=== PATIENT | female | born 1960 | race Caucasian/White ===

== ENCOUNTER 2016-09-02 11:47 | Inpatient (IN) | payer BC ==
[~2016-09-02] VITALS: Ht 165.1 cm; Wt 111.6 kg
--- NOTE | ~2016-09-02 | S ---
[facility] [place] [address] SURGICAL PATH RPT PROCEDURE Name: MATT SCHULTZ Room #: 408-P [facility] IN M.R.#: [id number] Admission: 09/02/16 Date of : 64 Discharge: 09/06/16 Report #: [id number] Path Case #: [id number] PATHOLOGY REPORT COLLECTION DATE: 09/03/2016 RECEIVED DATE: 09/05/2016 SUBMITTING PHYS: Dr. Bob José OTHER PHYS: Dr. Aubree Vitale * AMENDED (CORRECTED) REPORT * SPECIMEN(S) RECEIVED: A.Bx sacrum splenic flexure to descending B.Bx descending colon polyp C.Bx rectal sigmoid D.Bx sigmoid inflammation E.Bx rectal polyp * * * * * * * * * * * * FINAL DIAGNOSIS: Amended Report 09/07/2016. This report is being amended due to incorrect client input by the legal intern. The final diagnosis remains unchanged. A. Large intestine, splenic flexure to descending, endoscopic biopsy: - Few fragments compatible with hyperplastic polyps; negative for dysplasia. - Remainder fragments showing no significant diagnostic abnormalities. B Polyp, descending colon polyp, endoscopic biopsy: - Tubular adenoma. - Negative for high grade dysplasia. C. Large intestine, rectal sigmoid, endoscopic biopsy: - Two fragments compatible with ischemic colitis. - Negative for dysplasia or malignancy. D. Large intestine, sigmoid inflammation, rule out malignancy, endoscopic biopsy: - Changes compatible with ischemic colitis. E. Polyp, rectal polyp, endoscopic biopsy: - Hyperplastic polyp. - Negative for dysplasia. COMMENT: Examination of the "sigmoid colon inflammation" and a few fragments in "rectosigmoid sigmoid" show lamina propria fibrosis, attenuated regenerative surface epithelium with atypia as well as loss of crypts. The changes are compatible with ischemic colitis. Findings [address] [address] SURGICAL PATH RPT PROCEDURE Name: SCHULTZMATT Gomez Room #: 408-P [facility] IN ..#: [id number] Admission: 09/02/16 Date of : 64 Discharge: 09/06/16 Report #: [id number] Path Case #: [id number] to suggest pseudomembranous colitis are not identified. There is no dysplasia or malignancy present. Clinical correlation is suggested. (IUV:csd; d/t: 09/06/2016) PATHOLOGIST: Naheed Lowe M.D. REPORT ELECTRONICALLY SIGNED BY: Naheed Lowe M.D. DATE/TIME: 09/07/2016 10:32 * * * * * * * * * * * * GROSS PATHOLOGY: A. Received in formalin labeled "Matt Schultz, splenic flexure to descending," are 5 segments of escobar soft tissue measuring 0.8 x 0.6 x 0.3 cm in aggregate dimensions and ranging from 0.2 to 0.4 cm in maximum dimension. The specimen is submitted entirely in cassette A1. B. Received in formalin labeled "Matt Schultz, biopsy descending colon polyp," is a segment of escobar soft tissue measuring 0.4 cm in maximum dimension. The specimen is submitted entirely in cassette B1. C. Received in formalin labeled "Matt Schultz, rectal sigmoid biopsy," are 3 segments of escobar soft tissue measuring 0.6 x 0.5 x 0.2 cm in aggregate dimensions and ranging from 0.3 to 0.4 cm in maximum dimension. The specimen is submitted entirely in cassette C1. D. Received in formalin labeled "Matt Schultz, biopsy sigmoid inflammation, rule out malignancy," are 4 segments of escobar soft tissue measuring 0.5 x 0.3 x 0.2 cm in aggregate dimensions and ranging from 0.2 to 0.3 cm in maximum dimension. The specimen is submitted entirely in cassette D1. E. Received in formalin labeled "Matt Schultz, biopsy rectal polyp," are 2 segments of escobar soft tissue measuring 0.6 x 0.3 x 0.2 cm in aggregate dimensions and ranging from 0.2 to 0.6 cm in maximum dimension. The specimen is submitted entirely in cassette E1. (KAH; 09/05/2016) CLINICAL HISTORY: Abdominal pain, GIB INITIAL CPT CODE(S): A; 70821 B; 65415 C; 41994 D; 11118 E; 86944 Professional services performed by [facility] at [address] [address] Technical services performed by [facility] at [address] [place] [id number] SURGICAL PATH RPT PROCEDURE Name: MATT SCHULTZ Room #: 408-P DIS IN M.R.#: [id number] Admission: 09/02/16 Date of : 64 Discharge: 09/06/16 Report #: [id number] Path Case #: [id number] [place] [address]. [facility] [address] [place] [address] PHONE: [phone] DIRECTOR: Keith Rizvi M.D. * * * END OF REPORT * * *
--- NOTE | ~2016-09-02 | H ---
[facility] [place] [address] HISTORY AND PHYSICAL Name: RAHEEM SCHULTZ Room #: 307-P [facility] IN ..#: [id number] Admission: 09/02/16 Attend Phys: Aubree France MD Discharge: Date of : 64 Report #: [id number] THIS REPORT FOR: //name// CC: Yanick Vitale DO Aubree France DATE OF SERVICE: 09/02/2016 CHIEF COMPLAINT: Abdominal pain and rectal bleeding. HISTORY OF PRESENT ILLNESS: The patient is a 56-year-old female with a history of hypertension and heavy tobacco abuse, presented to the ER secondary to abdominal pain and rectal bleeding. She indicates that symptoms started early in the morning as she was going to the bathroom. She had some nausea and vomiting and then significant amount of bright bloody stools. She has had multiple episodes. This was accompanied by severe burning in lower abdominal pain. She denies any prior history of this. She denies any recent travel, bad food, or sick contacts. She did have antibiotics a couple of weeks ago for an eye infection, but never completed her antibiotics. She denies any large amounts of diarrhea or bad odor. She last ate pizza yesterday evening with her family, but no one else is sick. She denies any prior history of this. She is not on any aspirin therapy. She continues to smoke heavily. She has not had a colonoscopy, and denies any family history of cancer. PAST MEDICAL HISTORY: Hypertension and GERD. CURRENT MEDICATIONS: Lisinopril/hydrochlorothiazide 20/25 one daily. ALLERGIES: None. SOCIAL HISTORY: She smokes little less than a pack a day, drinks occasionally. PAST SURGICAL HISTORY: None. REVIEW OF SYSTEMS: A 14-point review of systems was conducted. All negative except for above. PHYSICAL EXAMINATION: VITAL SIGNS: Temperature of 97, pulse of 73, blood pressure of 168/60, O2 sat is 97% on room air. GENERAL: She is awake, alert, and answering questions appropriately, in no acute respiratory distress, although she appears to be in pain. HEENT: Normocephalic and atraumatic. Pupils are equal. Mucous membranes are dry. NECK: Supple. [facility] [address] [place] [address] HISTORY AND PHYSICAL Name: RAHEEM SCHULTZ Room #: 307-P [facility] IN [facility]#: [id number] Admission: 09/02/16 Attend Phys: Aubree France MD Discharge: Date of : 64 Report #: [id number] CARDIOVASCULAR: Regular rate and rhythm. No murmurs. LUNGS: Clear to auscultation bilaterally. No crackles or wheeze. ABDOMEN: Soft. No distention. She had low abdominal tenderness. Normoactive bowel sounds. EXTREMITIES: No edema. LABS AND TESTING: White count of 11, H and H of 14 and 43, platelets 207. Occult blood was positive. Sodium 139, potassium 3.5, BUN and creatinine 12 and 0.9. LFTs are negative. Glucose 224. INR was 1.02. CT of the abdomen and pelvis demonstrated diffuse colitis involving the splenic flexure, descending colon, and proximal sigmoid colon. ASSESSMENT AND PLAN: 1. Colitis, suspected ischemic. Completely ruled out an infectious etiology. We will admit. Keep her n.p.o. Consult GI, consider CT angiogram on her mesenteric artery. I discussed smoking cessation as well with the patient. We will also order an infectious panel as well. 2. Hypertension. Continue home meds. 3. Hyperglycemia. It is suspected newly diagnosed diabetes. We will check an A1c and do Accu-Cheks here and treat appropriately based on A1c. 4. Tobacco abuse. I advised cessation. We will provide her with NicoDerm patch. 5. Morbid obesity. The patient would benefit with outpatient weight loss. 6. Deep venous thrombosis prophylaxis with SCDs. By: 1536 1714 My Grace France MD /nt
[~2016-09-02 11:47] MED LIST: ANTIVERT25 MG PO; LISINOPRIL-HCT1 EAC2 PO
[2016-09-02 11:49] VITALS: BP 184/74
[2016-09-02 12:37] LABS: ABSOLUTE NEUTROPHILS 9.5 thou/uL (1.4-8.2); BASOPHILS 0.2 % (0.0-2.0); EOSINOPHILS 0.2 % (0.0-3.0); HEMATOCRIT 43.1 % (37.0-47.0); HEMOGLOBIN 14.4 gm/dL (12.0-15.0); MCH 29.3 pg (26.0-34.0); MCHC 33.5 g/dL (28.0-37.0); MCV 87.4 fL (80.0-100.0); MONOCYTES 5.7 % (1.0-8.0); PLATELET COUNT 207 thou/uL (150-400); POLYS 83.9 % (36.0-66.0); RBC 4.94 mil/uL (4.20-5.00); RDW 14.4 % (10.5-14.5); WBC 11.4 thou/uL (4.0-11.0)
[2016-09-02 12:39] LABS: MANUAL DIFF NO
[2016-09-02 12:45] LABS: CALCIUM 8.4 mg/dL (8.5-10.1); CREATININE 0.9 mg/dL (0.6-1.0); POTASSIUM 3.5 mmol/L (3.5-5.1)
[2016-09-02 12:48] LABS: PROTIME 10.7 Seconds (9.3-11.4)
[2016-09-02 12:49] LABS: ALBUMIN 3.1 g/dL (3.4-5.0); TOTAL BILIRUBIN 0.3 mg/dL (<0.1-1.0); TOTAL PROTEIN 6.8 g/dL (6.4-8.2)
[2016-09-02 15:33] LABS: TROPONIN-I < 0.04 ng/mL (<0.04-0.07)
[2016-09-02 15:55] VITALS: BP 153/89
[2016-09-02 15:59] VITALS: BP 154/80
[2016-09-02 18:31] LABS: HEMATOCRIT 43.5 % (37.0-47.0); HEMOGLOBIN 14.5 gm/dL (12.0-15.0)
[2016-09-02 19:55] VITALS: BP 178/80
[2016-09-02 23:50] VITALS: BP 152/80
[2016-09-03 00:35] LABS: BASOPHILS 0.4 % (0.0-2.0); EOSINOPHILS 0.5 % (0.0-3.0); HEMATOCRIT 40.8 % (37.0-47.0); HEMOGLOBIN 13.6 gm/dL (12.0-15.0); LYMPHOCYTES 14.7 % (24.0-44.0); MCHC 33.5 g/dL (28.0-37.0); MCV 86.6 fL (80.0-100.0); MONOCYTES 6.7 % (1.0-8.0); PLATELET COUNT 196 thou/uL (150-400); POLYS 77.7 % (36.0-66.0); RBC 4.71 mil/uL (4.20-5.00); RDW 14.5 % (10.5-14.5); WBC 11.6 thou/uL (4.0-11.0)
[2016-09-03 00:40] LABS: MANUAL DIFF NO
[2016-09-03 04:06] LABS: GLYCOHEMOGLOBIN (HGB A1C) 6.4 % (4.8-5.6)
[2016-09-03 04:15] VITALS: BP 149/77
[2016-09-03 06:27] LABS: HEMOGLOBIN 13.5 gm/dL (12.0-15.0)
[2016-09-03 08:00] VITALS: BP 154/94
[2016-09-03 12:07] LABS: HEMATOCRIT 39.8 % (37.0-47.0); HEMOGLOBIN 13.3 gm/dL (12.0-15.0)
[2016-09-03 16:00] VITALS: BP 138/84
[2016-09-03 20:00] VITALS: BP 117/64
[2016-09-04 04:00] VITALS: BP 125/59
[2016-09-04 04:22] LABS: ABSOLUTE NEUTROPHILS 8.3 thou/uL (1.4-8.2); BASOPHILS 0.4 % (0.0-2.0); EOSINOPHILS 1.1 % (0.0-3.0); HEMATOCRIT 35.8 % (37.0-47.0); HEMOGLOBIN 12.1 gm/dL (12.0-15.0); LYMPHOCYTES 17.2 % (24.0-44.0); MCH 29.4 pg (26.0-34.0); MCHC 33.8 g/dL (28.0-37.0); MCV 86.9 fL (80.0-100.0); MONOCYTES 5.7 % (1.0-8.0); PLATELET COUNT 180 thou/uL (150-400); POLYS 75.6 % (36.0-66.0); RBC 4.13 mil/uL (4.20-5.00)
[2016-09-04 04:24] LABS: MANUAL DIFF NO
[2016-09-04 04:26] LABS: CALCIUM 7.7 mg/dL (8.5-10.1); CREATININE 0.7 mg/dL (0.6-1.0); POTASSIUM 3.5 mmol/L (3.5-5.1)
[2016-09-04 08:00] VITALS: BP 112/71
[2016-09-04 16:00] VITALS: BP 122/75
[2016-09-04 19:20] VITALS: BP 121/75
[2016-09-05 04:24] VITALS: BP 113/59
[2016-09-05 06:06] LABS: ABSOLUTE NEUTROPHILS 6.5 thou/uL (1.4-8.2); BASOPHILS 0.4 % (0.0-2.0); EOSINOPHILS 1.9 % (0.0-3.0); HEMOGLOBIN 11.5 gm/dL (12.0-15.0); LYMPHOCYTES 21.1 % (24.0-44.0); MCH 29.5 pg (26.0-34.0); MCHC 33.9 g/dL (28.0-37.0); PLATELET COUNT 189 thou/uL (150-400); POLYS 70.6 % (36.0-66.0); RDW 13.9 % (10.5-14.5); WBC 9.3 thou/uL (4.0-11.0)
[2016-09-05 06:09] LABS: CALCIUM 7.9 mg/dL (8.5-10.1); CREATININE 0.7 mg/dL (0.6-1.0); POTASSIUM 3.6 mmol/L (3.5-5.1)
[2016-09-05 06:12] LABS: MANUAL DIFF NO
[2016-09-05 08:15] VITALS: BP 113/59
[2016-09-05 17:50] VITALS: BP 116/73
[2016-09-05 18:40] VITALS: BP 125/91
[2016-09-05 22:50] VITALS: BP 124/67
[2016-09-06 03:37] VITALS: BP 136/73
[2016-09-06 05:40] LABS: HEMATOCRIT 34.3 % (37.0-47.0); HEMOGLOBIN 11.6 gm/dL (12.0-15.0); MCH 29.7 pg (26.0-34.0); MCV 87.4 fL (80.0-100.0); RBC 3.92 mil/uL (4.20-5.00); RDW 13.9 % (10.5-14.5); WBC 7.8 thou/uL (4.0-11.0)
[2016-09-06 06:13] LABS: ANION GAP 6 mmol/L (7-16); BUN 6 mg/dL (7-18); CALCIUM 7.7 mg/dL (8.5-10.1); CHLORIDE 106 mmol/L (98-107); CHOLESTEROL 131 mg/dL (<200); CO2 29 mmol/L (21-32); CREATININE 0.7 mg/dL (0.6-1.0); GLUCOSE 131 mg/dL (74-106); HDL CHOLESTEROL 38 mg/dL (>40); LDL CHOLESTEROL 82 mg/dL (<100); POTASSIUM 3.8 mmol/L (3.5-5.1); SODIUM 141 mmol/L (136-145); TC:HDL 3.4 Ratio (Not establshd); TRIGLYCERIDE 57 mg/dL (<150); VLDL 11 mg/dL (<40)
[2016-09-06 08:02] VITALS: BP 143/81
[2016-09-06] MEDS ORDERED: HYDROCODONE-AP1 EAC6 PO (11:29)
[2016-09-06] MEDS ORDERED: PLAVIX 75 MG TA75 M1 PO (11:29)
[2016-09-06] MEDS ORDERED: NICOTINE TRANSD14 M1 TRANSDERM (11:29)
[2016-09-06] MEDS ORDERED: ASPIR 8181 MG PO (11:29)
[2016-09-06 12:14] VITALS: BP 143/81
== END 2016-09-06 13:10 | disposition home or self-care (01) | DRG 357 ==
LOC: ER 11:47 → 3N 14:26 → EROBS 14:26 → 3N 15:58 → 4N 09-05 06:40
PROVIDERS: Family Medicine; Internal Medicine Endocrinology, Diabetes & Metabolism; Nurse Practitioner Family
DX: K55.031 Focal (segmental) acute (reversible) ischemia of large intestine (principal); Z68.41 Body mass index [BMI] 40.0-44.9, adult; K55.1 Chronic vascular disorders of intestine; K58.9 Irritable bowel syndrome, unspecified; I10 Essential (primary) hypertension; F17.210 Nicotine dependence, cigarettes, uncomplicated; E11.9 Type 2 diabetes mellitus without complications; K21.9 Gastro-esophageal reflux disease without esophagitis; E66.01 Morbid (severe) obesity due to excess calories; Z79.899 Other long term (current) drug therapy; Z90.49 Acquired absence of other specified parts of digestive tract; Z90.710 Acquired absence of both cervix and uterus; Z71.6 Tobacco abuse counseling
CPT/HCPCS: 10091; 10094; 62110; 62900

== ENCOUNTER 2018-05-21 08:22 | Inpatient (IN) | payer OTHER ==
[~2018-05-21] VITALS: Ht 165.1 cm; Wt 95.3 kg
--- NOTE | ~2018-05-21 | P ---
[facility] [place] [address] PROCEDURE REPORT Name: YAZ CHURCHTANGELA Gomez Room #: 456-P [facility] IN ..#: [id number] Admission: 05/21/18 Attend Phys: Kedar Riley MD Discharge: Date of : 64 Report #: [id number] THIS REPORT FOR: //name// CC: Yanick Riley MD DATE OF SERVICE: 05/22/2018 PROCEDURE PERFORMED: Upper endoscopy. HISTORY OF PRESENT ILLNESS: The patient is a 58-year-old female who was admitted yesterday with bright red blood per rectum as well as abdominal pain. She has had a previous history of ischemic colitis that was noted on CT as well as on flexible sigmoidoscopy in August of 2016. Later had an arteriogram as she had narrowing in the FAY and this was angioplasty and a stent was placed. Recommended aspirin and Plavix. The patient did not continue anticoagulation therapy. She does report intermittent heartburn symptoms. No further bleeding since last evening. Hemoglobin on admission 13.8. Plan is for EGD and colonoscopy today. DESCRIPTION OF PROCEDURE: The risks and benefits of the procedure were explained to the patient, those risks including but not limited to bleeding, perforation and the risk of sedation. She understood these risks and gave informed consent. Sedation was given using propofol per anesthesia. Next, using a standard Olympus upper endoscope, the scope was placed in the patient's mouth and advanced under direct vision through the esophagus, stomach and into the second portion of the duodenum. On her left vocal cords, there was a small white plaque, otherwise normal. The upper and mid esophagus was normal. In the distal esophagus, grade C erosive esophagitis was noted. No evidence of bleeding. A small hiatal hernia was noted upon entering the stomach. Overall, the gastric mucosa was normal in the fundus, body and antrum. The pylorus was normal and patent. The duodenal bulb, first and second portion were all normal. The scope was then withdrawn and the procedure terminated. The patient tolerated the procedure well. IMPRESSION: 1. Small white plaque on left vocal cord. 2. Grade C erosive esophagitis. 3. Small hiatal hernia. 4. Otherwise, normal upper endoscopy. RECOMMENDATIONS: 1. Recommend daily PPI therapy. 2. Have ENT evaluate the patient's vocal cords on a routine basis. 3. We will proceed with colonoscopy today. [address] [address] PROCEDURE REPORT Name: RAHEEM CHURCH Room #: 456-P [facility] IN Denny#: [id number] Admission: 05/21/18 Attend Phys: Kedar Riley MD Discharge: Date of : 64 Report #: [id number] Thank you for allowing me to participate in her care. By: 1354 1532 Gianni Morales MD /nt
[~2018-05-21 08:22] MED LIST changes: +ASPIR 8181 MG PO; +HYDROCODONE-AP1 EAC6 PO; +NICOTINE TRANSD14 M1 TRANSDERM; +PLAVIX 75 MG TA75 M1 PO
[2018-05-21 08:24] VITALS: BP 160/77
[2018-05-21 09:11] LABS: ANION GAP 6 mmol/L (7-16); APTT 23.6 Seconds (24.5-32.8); BUN 15 mg/dL (7-18); CALCIUM 9.1 mg/dL (8.5-10.1); CHLORIDE 103 mmol/L (98-107); CO2 30 mmol/L (21-32); CREATININE 0.9 mg/dL (0.6-1.0); GLUCOSE 138 mg/dL (74-106); PROTIME 9.6 Seconds (9.3-11.4); SODIUM 139 mmol/L (136-145)
[2018-05-21 09:12] LABS: POTASSIUM 4.5 mmol/L (3.5-5.1)
[2018-05-21 09:16] LABS: ABSOLUTE NEUTROPHILS 5.1 thou/uL (1.4-8.2); BASOPHILS 1.2 % (0.0-2.0); EOSINOPHILS 2.3 % (0.0-3.0); HEMATOCRIT 41.6 % (37.0-47.0); HEMOGLOBIN 13.8 gm/dL (12.0-15.0); LYMPHOCYTES 26.9 % (24.0-44.0); MCH 28.8 pg (26.0-34.0); MCHC 33.2 g/dL (28.0-37.0); MCV 86.7 fL (80.0-100.0); MONOCYTES 5.1 % (1.0-8.0); PLATELET COUNT 221 thou/uL (150-400); POLYS 64.5 % (36.0-66.0); RDW 13.8 % (10.5-14.5); WBC 7.9 thou/uL (4.0-11.0)
[2018-05-21 09:18] LABS: ALBUMIN 3.5 g/dL (3.4-5.0); DIRECT BILIRUBIN < 0.1 mg/dL (<0.1-0.3); SGOT 26 U/L (15-37); SGPT 33 U/L (30-65); TOTAL BILIRUBIN 0.4 mg/dL (<0.1-1.0); TOTAL PROTEIN 7.6 g/dL (6.4-8.2); TROPONIN-I <0.06 ng/mL (<0.06)
[2018-05-21] MEDS ORDERED: VALACYCLOVIR500 MG PO (11:37)
[2018-05-21] MEDS ORDERED: MIRALAX17 GM PO (11:42)
[2018-05-21] MEDS ORDERED: COLACE100 MG PO (11:42)
[2018-05-21] MEDS ORDERED: METAMUCIL1 EAC1 PO (11:43)
[2018-05-21 12:58] VITALS: BP 165/70
[2018-05-21 13:23] VITALS: BP 161/78
[2018-05-21 14:35] VITALS: BP 148/80
[2018-05-21 20:28] VITALS: BP 168/83
--- NOTE | 2018-05-22 03:14 | NUR ---
PT RESTED THROUGHOUT MOST OF THE NIGHT PT TOOK ALL BOWEL PREP AND NPO SINCE MIDNIGHT PT USED CALL LIGHT EFFECTIVELY.
[2018-05-22 04:07] LABS: GLYCOHEMOGLOBIN (HGB A1C) 7.1 % (4.8-5.6)
[2018-05-22 04:33] VITALS: BP 130/76
[2018-05-22 06:05] LABS: HEMATOCRIT 38.4 % (37.0-47.0); HEMOGLOBIN 12.8 gm/dL (12.0-15.0); MCH 28.9 pg (26.0-34.0); MCHC 33.4 g/dL (28.0-37.0); MCV 86.7 fL (80.0-100.0); RBC 4.43 mil/uL (4.20-5.00); RDW 13.7 % (10.5-14.5); WBC 6.8 thou/uL (4.0-11.0)
[2018-05-22 06:18] LABS: CALCIUM 8.1 mg/dL (8.5-10.1); CREATININE 0.7 mg/dL (0.6-1.0); POTASSIUM 4.2 mmol/L (3.5-5.1)
[2018-05-22 08:43] VITALS: BP 127/61
[2018-05-22 14:52] VITALS: BP 136/78
--- NOTE | 2018-05-22 15:22 | P ---
[facility] [place] [address] PROCEDURE REPORT Name: YAZ CHURCHTANGELA Gomez Room #: 456-P [facility] IN ..#: [id number] Admission: 05/21/18 Attend Phys: Kedar Riley MD Discharge: Date of : 64 Report #: [id number] THIS REPORT FOR: //name// CC: Yanick Riley MD DATE OF SERVICE: 05/22/2018 PROCEDURE PERFORMED: Colonoscopy. HISTORY OF PRESENT ILLNESS: The patient is a 58-year-old female with admission yesterday for bright red blood per rectum. She has a previous history of ischemic colitis diagnosed in 2017. At that time, underwent an arteriogram which showed stenosis of the FAY 70%. A stent was placed. The patient was supposed to be taking aspirin and Plavix on a daily basis, but she has not been on this medicine. She had an episode of bright red blood per rectum upon admission yesterday, some abdominal pain, but the abdominal pain has been ongoing. Plan is for colonoscopy today. Hemoglobin today is 12.8, yesterday was 13.8. DESCRIPTION OF PROCEDURE: The risks and benefits of the procedure were explained to the patient, those risks including but not limited to bleeding, perforation and the risk of sedation. She understood these risks and gave informed consent. Sedation was given using propofol per Anesthesia. Next, using a pediatric Olympus colonoscope, the scope was placed in the patient's anus and advanced under direct vision to the cecum. The overall prep was good in most areas. It was poor in a few small areas, but most areas were fairly well visualized. Multiple washings and aspirations were performed. The visualized portions of the cecum were normal. The ileocecal valve was normal. Ascending colon was normal. There were small areas of the transverse colon that showed poor prep, but most areas were visualized and normal. The descending and sigmoid colon were normal. The rectal mucosa was normal. There was no evidence of colitis or bleeding throughout the exam today. On retroflexion, small to medium sized internal hemorrhoids, on external exam large external hemorrhoids were noted. No evidence of bleeding at this time, although they were somewhat friable. The scope was then withdrawn and the procedure terminated. The patient tolerated the procedure well. IMPRESSION: 1. Small to medium sized internal hemorrhoids and large external hemorrhoids, suspect this is likely source of recent bright red blood per rectum. 2. No obvious colitis on exam today as described above. RECOMMENDATIONS: 1. High fiber diet. [facility] [address] [place] [address] PROCEDURE REPORT Name: RAHEEM CHURCH Room #: 456-P [facility] IN [facility].#: [id number] Admission: 05/21/18 Attend Phys: Kedar Riley MD Discharge: Date of : 64 Report #: [id number] 2. Analpram b.i.d. for one week and then p.r.n. 3. Repeat colonoscopy in 5 years. 4. If the patient still has intermittent crampy abdominal pain, would recommend a trial of Levsin on a p.r.n. basis. Thank you for allowing me to participate in her care. <ELECTRONICALLY SIGNED> By: Gianni Morales MD 05/22/18 1522 1358 1514 Gianni Morales MD /nt
--- NOTE | 2018-05-22 15:25 | NUR ---
PT ADMITTED RELATED TO RT TOTAL KNEE REVISION. CM REVIEWED CHART AND SPOKE WITH CARE TEAM. CM MET WITH PT AT BEDSIDE THIS DAY. PT IS A&O X4. CM ROLE INTRODUCED. PT INDICATED SHE LIVES IN A HOUSE WITH HER SPOUSE WITH 4 STEPS TO ENTER AND NO STEPS INSIDE. 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 PT INDICATED NO HH OR DME HX. PT TO DISHCARGE HOME THIS DAY WITH NO NEEDS. NO OTHER CM INTERVENTION INDICATED AT THIS TIME CASE CLOSED.
[2018-05-22] MEDS ORDERED: ASPIR 8181 MG PO (16:11)
[2018-05-22] MEDS ORDERED: PLAVIX 75 MG TA75 M1 PO (16:11)
[2018-05-22] MEDS ORDERED: PROTONIX40 M1 PO (16:12)
[2018-05-22 16:22] VITALS: BP 136/78
--- NOTE | 2018-05-22 16:34 | NUR ---
PT DISCHARGED HOME. PT STABLE THROUGHOUT SHIFT, TOLERATED GI PROCEDURES WELL. PT LEFT UNIT VIA WHEELCHAIR TO PRIVATE VEHICLE.
[2018-05-22] MEDS ORDERED: PAXIL10 MG PO (16:40)
--- NOTE | 2018-05-22 16:51 | NUR ---
PT STABLE THROUGHOUT SHIFT. WORKED WITH PT WHICH SHE TOLERATED WELL. PT UP TO BSC SEVERAL TIMES, MARCEL REMOVED. PT TRANSFERRED TO [facility] VIA WHEELCHAIR VAN, REPORT CALLED.
== END 2018-05-22 17:30 | disposition home or self-care (01) | DRG 379 ==
LOC: ER 08:22 → 4W 12:27 → EROBS 12:27 → 4W 14:16
PROVIDERS: Emergency Medicine; Nurse Practitioner; ADMIT Hospitalist
PROC: 0DJ08ZZ Inspection of Upper Intestinal Tract, Via Natural or Artificial Opening Endoscopic (ICD-10-PCS; principal; 2018-05-22)
PROC: 0DJD8ZZ Inspection of Lower Intestinal Tract, Via Natural or Artificial Opening Endoscopic (ICD-10-PCS; principal; 2018-05-22)
DX: K62.5 Hemorrhage of anus and rectum (principal); I10 Essential (primary) hypertension; K64.4 Residual hemorrhoidal skin tags; K64.8 Other hemorrhoids; K44.9 Diaphragmatic hernia without obstruction or gangrene; K21.0 Gastro-esophageal reflux disease with esophagitis; K58.9 Irritable bowel syndrome, unspecified; I73.9 Peripheral vascular disease, unspecified; F17.210 Nicotine dependence, cigarettes, uncomplicated; Z86.010 Personal history of colon polyps; Z90.49 Acquired absence of other specified parts of digestive tract; Z90.710 Acquired absence of both cervix and uterus; Z79.899 Other long term (current) drug therapy; Z88.8 Allergy status to other drugs, medicaments and biological substances; Z23 Encounter for immunization
CPT/HCPCS: 10040; 62110; 62900; 70005

== ENCOUNTER 2019-01-11 14:22 | Emergency (ER) | payer OTHER ==
[~2019-01-11] VITALS: Ht 165.1 cm; Wt 90.7 kg
[~2019-01-11 14:22] MED LIST changes: +COLACE100 MG PO; +METAMUCIL1 EAC1 PO; +MIRALAX17 GM PO; +PAXIL10 MG PO; +PROTONIX40 M1 PO; +VALACYCLOVIR500 MG PO
[2019-01-11] MEDS ORDERED: ADIPEX-P37.5 MG PO (14:29)
[2019-01-11 14:42] LABS: ABSOLUTE NEUTROPHILS 4.4 thou/uL (1.4-8.2); BASOPHILS 0.8 % (0.0-2.0); EOSINOPHILS 3.5 % (0.0-3.0); HEMOGLOBIN 14.2 gm/dL (12.0-15.0); LYMPHOCYTES 30.6 % (24.0-44.0); MCH 29.2 pg (26.0-34.0); MCHC 33.9 g/dL (28.0-37.0); MCV 86.1 fL (80.0-100.0); MONOCYTES 7.2 % (1.0-8.0); PLATELET COUNT 219 thou/uL (150-400); POLYS 57.9 % (36.0-66.0); RBC 4.87 mil/uL (4.20-5.00); RDW 13.7 % (10.5-14.5); WBC 7.7 thou/uL (4.0-11.0)
[2019-01-11 14:52] LABS: ANION GAP 6 mmol/L (7-16); BUN 15 mg/dL (7-18); CALCIUM 8.9 mg/dL (8.5-10.1); CHLORIDE 105 mmol/L (98-107); CO2 30 mmol/L (21-32); CREATININE 0.8 mg/dL (0.6-1.0); GLUCOSE 123 mg/dL (74-106); SODIUM 141 mmol/L (136-145)
[2019-01-11 15:01] LABS: ALBUMIN 3.1 g/dL (3.4-5.0); MAGNESIUM 1.8 mg/dL (1.8-2.4); SGOT 16 U/L (15-37); SGPT 20 U/L (30-65); TOTAL BILIRUBIN 0.1 mg/dL (<0.1-1.0); TOTAL PROTEIN 6.5 g/dL (6.4-8.2); TROPONIN-I <0.06 ng/mL (<0.06)
[2019-01-11 15:26] VITALS: BP 148/87
--- NOTE | 2019-01-15 07:42 | EKG ---
[address] [place] [address] ELECTROCARDIOGRAM REPORT Name: RAHEEM CHURCH [facility] [id number] Admission: 01/11/19 Attend Phys: Discharge: 01/11/19 Date of : 64 Report #: [id number] THIS REPORT FOR: //name// [facility] ED Test Date: 2019-01-11 Test Time: 14:21:30 Pat Name: RAHEEM CHURCH Department: Room: Gender: F Technology Administrator: [id number] : 1960 Requested By: William Simon Order Number: [id number] MD: Pranay Mcdonald Measurements Intervals [place] Rate: 80 P: 61 WV: 159 QRS: 8 QRSD: 81 T: 58 QT: 367 QTc: 424 Interpretive Statements Sinus rhythm Low voltage QRS Compared to ECG 09/16/2014 18:41:12 Low QRS voltage now present Electronically Signed On 01-15-2019 7:42:03 CDT by Pranay Mcdonald [email or web address] <ELECTRONICALLY SIGNED> By: Pranay Mcdonald MD, [facility] 01/15/19 0742 1421 142 Pranay Mcdonald MD, FACC /EPI
== END 2019-01-11 15:41 | disposition home or self-care (01) ==
LOC: ER 14:22
PROVIDERS: Emergency Medicine
DX: R07.89 Other chest pain (principal); F17.210 Nicotine dependence, cigarettes, uncomplicated; I10 Essential (primary) hypertension; K21.9 Gastro-esophageal reflux disease without esophagitis; K58.9 Irritable bowel syndrome, unspecified; Z90.710 Acquired absence of both cervix and uterus; Z90.49 Acquired absence of other specified parts of digestive tract; Z88.4 Allergy status to anesthetic agent

== ENCOUNTER 2019-01-17 09:39 | Inpatient (IN) | payer OTHER ==
[~2019-01-17] VITALS: Ht 165.1 cm; Wt 102.5 kg
[2019-01-17 09:39] VITALS: BP 152/78
[~2019-01-17 09:39] MED LIST changes: +ADIPEX-P37.5 MG PO
[2019-01-17 09:58] LABS: BASOPHILS 0.9 % (0.0-2.0); EOSINOPHILS 2.6 % (0.0-3.0); HEMATOCRIT 45.2 % (37.0-47.0); LYMPHOCYTES 24.5 % (24.0-44.0); MCH 29.2 pg (26.0-34.0); MCHC 33.2 g/dL (28.0-37.0); MONOCYTES 5.1 % (1.0-8.0); PLATELET COUNT 229 thou/uL (150-400); POLYS 66.9 % (36.0-66.0); RBC 5.14 mil/uL (4.20-5.00); RDW 13.9 % (10.5-14.5); WBC 7.5 thou/uL (4.0-11.0)
[2019-01-17 10:05] LABS: ANION GAP 6 mmol/L (7-16); BUN 13 mg/dL (7-18); CALCIUM 8.4 mg/dL (8.5-10.1); CHLORIDE 102 mmol/L (98-107); CO2 29 mmol/L (21-32); CREATININE 0.9 mg/dL (0.6-1.0); GLUCOSE 205 mg/dL (74-106); POTASSIUM 3.9 mmol/L (3.5-5.1); SODIUM 137 mmol/L (136-145)
[2019-01-17 10:15] LABS: ALBUMIN 3.3 g/dL (3.4-5.0); SGOT 21 U/L (15-37); SGPT 32 U/L (30-65); TOTAL BILIRUBIN 0.3 mg/dL (<0.1-1.0); TROPONIN-I <0.06 ng/mL (<0.06)
[2019-01-17 12:39] VITALS: BP 141/69
[2019-01-17 13:50] VITALS: BP 139/76
[2019-01-17 16:05] VITALS: BP 153/85
--- NOTE | 2019-01-17 18:40 | NUR ---
PT WAS ADMITTED FROM ER EARLIER TODAY. PT TO HAVE CARDIAC CATH TOMORROW. PT EDUCATED ABOUT PROCEDURE. NO QUESTIONS AT THIS TIME. PT UP AD LORRIE, NO CHEST PAIN SINCE ARRIVAL
[2019-01-17 19:55] VITALS: BP 146/84
[2019-01-18] VITALS (15 sets, daily range): BP systolic 126–171; BP diastolic 74–88
--- NOTE | 2019-01-18 00:09 | 2DMMODE ---
[facility] [address] [place] [address] 2 D/M-MODE ECHOCARDIOGRAM Name: RAHEEM CHURCH Room #: 354-P [facility] IN [facility]#: [id number] ������������� Admission: 01/17/19 ������������� Attend Phys: Kedar Riley MD Discharge: ��� ������������� ��� Date of : 64 Date of Service: 01/18/19 0008 �� Report #: [id number] �������� ��������������������������������������������[id number] THIS REPORT FOR: //name// APPROVED REPORT Study performed: 01/17/2019 14:49:54 EXAM: Comprehensive 2D, Doppler, and color-flow Echocardiogram Patient Location: Echo lab Room #: [facility] Status: routine BSA: 2.01 HR: 78 bpm BP: 139/76 mmHg Rhythm: NSR Other Information Study Quality: Good Indications Diabetes Chest Pain Hypertension/HDD 2D Dimensions RVDd: 25.42 mm IVSd: 12.43 (7-11mm) LVOT Diam: 20.45 (18-24mm) LVDd: 40.69 mm PWd: 10.85 (7-11mm) Ascending Ao: 27.97 (22-36mm) LVDs: 32.05 (25-40mm) Aortic Root: 30.77 mm IVC: 15.00 mm Volumes Left Atrial Volume (Systole) Single Plane 4CH: 41.74 mL Single Plane 2CH: 31.59 mL LA ESV Index: 21.00 mL/m2 Aortic Valve AoV Peak Clemente.: 1.55 m/s AO Peak Gr.: 9.67 mmHg LVOT Max P.13 mmHg LVOT Max V: 1.02 m/s ROSELIA Vmax: 2.15 cm2 Mitral Valve E/A Ratio: 1.1 [facility] [place] [place] [address] 2 D/M-MODE ECHOCARDIOGRAM Name: RAHEEM CHURCH Room #: 354-P [facility]#: [id number] ������������� Admission: 01/17/19 ������������� Attend Phys: Kedar Riley MD Discharge: ��� ������������� ��� Date of : 64 Date of Service: 01/18/19 0008 �� Report #: [id number] �������� ��������������������������������������������[id number] MV Decel. Time: 171.64 ms MV E Max Clemente.: 0.97 m/s MV A Clemente.: 0.91 m/s MV PHT: 49.77 ms IVRT: 79.58 ms Pulmonary Valve PV Peak Clemente.: 0.93 m/s PV Peak Gr.: 3.45 mmHg Pulmonary Vein P Vein S: 0.77 m/s P Vein A: 0.18 m/s P Vein D: 0.53 m/s P Vein A Dur.: 73.8 msec P Vein S/D Ratio: 1.45 Tricuspid Valve TR Peak Clemente.: 3.02 m/s RAP Estimate: 5.00 mmHg TR Peak Gr.: 36.55 mmHg PA Pressure: 42.00 mmHg Left Ventricle The left ventricle is normal size. There is normal left ventricular wall thickness. The left ventricular systolic function is normal. The left ventricular ejection fraction is within the normal range. LVEF is 55%. Mild diastolic dysfunction is present (impaired relaxation pattern). Right Ventricle The right ventricle is normal size. The right ventricular systolic function is normal. Atria The left atrium size is normal. The right atrium size is normal. Aortic Valve The aortic valve is normal in structure. No aortic regurgitation is present. There is no aortic valvular stenosis. Mitral Valve The mitral valve is normal in structure. Trace mitral regurgitation. No evidence of mitral valve stenosis. Tricuspid Valve The tricuspid valve is normal in structure. Trace tricuspid regurgitation. PAP is estimated at [address] [place] [address] 2 D/M-MODE ECHOCARDIOGRAM Name: RAHEEM CHRUCH Room #: 354-P [facility] IN [facility].#: [id number] ������������� Admission: 01/17/19 ������������� Attend Phys: Kedar Riley MD Discharge: ��� ������������� ��� Date of : 64 Date of Service: 01/18/19 0008 �� Report #: [id number] �������� ��������������������������������������������[id number] Pulmonic Valve The pulmonary valve is normal in structure. There is no pulmonic valvular regurgitation. Great Vessels The aortic root is normal in size. IVC is normal in size and collapses >50% with inspiration. Pericardium There is no pericardial effusion. <Conclusion> The left ventricle is normal size. LVEF is 55%. The aortic valve is normal in structure. The mitral valve is normal in structure. Trace mitral regurgitation. The tricuspid valve is normal in structure. Trace tricuspid regurgitation. PAP is estimated at 42 mmHg. The pulmonary valve is normal in structure. There is no pericardial effusion. ��������������������������������������������� <ELECTRONICALLY SIGNED> ���������������������������������������� By: Mina Kirby MD ��������������������������������������������� 01/18/197 Mina Kirby MD /INF
[2019-01-18 01:08] LABS: GLYCOHEMOGLOBIN (HGB A1C) 7.3 % (4.8-5.6)
--- NOTE | 2019-01-18 03:23 | NUR ---
ASSUMED CARE FROM DAY SHIFT PT RESTING IN BED DENIES CHEST PAIN , DISCUSSED PLAN OF CARE AND AM CATH , PT VERBALIZED UNDERSTANDING AND AGREEABLE. NSR ON BROODMARE FOREMAN , PT RESTED WELL THROUGHOUT HOURLY ROUNDS, WILL REPORT CHANGES OR ABNORMAL FINDINGS.
[2019-01-18 05:50] LABS: BASOPHILS 0.7 % (0.0-2.0); EOSINOPHILS 3.1 % (0.0-3.0); HEMATOCRIT 40.5 % (37.0-47.0); HEMOGLOBIN 13.5 gm/dL (12.0-15.0); LYMPHOCYTES 31.6 % (24.0-44.0); MCH 29.1 pg (26.0-34.0); MCHC 33.3 g/dL (28.0-37.0); MCV 87.3 fL (80.0-100.0); MONOCYTES 6.2 % (1.0-8.0); PLATELET COUNT 210 thou/uL (150-400); POLYS 58.4 % (36.0-66.0); RBC 4.64 mil/uL (4.20-5.00); RDW 13.7 % (10.5-14.5); WBC 6.9 thou/uL (4.0-11.0)
[2019-01-18 05:51] LABS: ANION GAP 5 mmol/L (7-16); BUN 15 mg/dL (7-18); CALCIUM 8.6 mg/dL (8.5-10.1); CHLORIDE 105 mmol/L (98-107); CHOLESTEROL 186 mg/dL (<200); CO2 29 mmol/L (21-32); CREATININE 0.8 mg/dL (0.6-1.0); GLUCOSE 142 mg/dL (74-106); HDL CHOLESTEROL 38 mg/dL (>40); LDL CHOLESTEROL 117 mg/dL (<100); POTASSIUM 4.4 mmol/L (3.5-5.1); SODIUM 139 mmol/L (136-145); TC:HDL 4.9 Ratio (Not establshd); TRIGLYCERIDE 155 mg/dL (<150); TROPONIN-I <0.06 ng/mL (<0.06); VLDL 31 mg/dL (<40)
[2019-01-18 06:05] LABS: SERUM ASSESSMENT Clear
[2019-01-18 09:06] LABS: URINE BILIRUBIN NEGATIVE (Negative); URINE BLOOD NEGATIVE (Negative); URINE CLARITY CLOUDY; URINE COLOR YELLOW; URINE GLUCOSE-RANDOM* NEGATIVE (Negative); URINE KETONES NEGATIVE (Negative); URINE PROTEIN (DIPSTICK) NEGATIVE (Negative); URINE SPECIFIC GRAVITY 1.015 (1.005-1.035); URINE UROBILINOGEN 0.2 E.U./dl (0.2-1.0)
[2019-01-18 09:07] LABS: URINE LEUKOCYTES-REFLEX 1+ (Negative); URINE NITRITE-REFLEX POSITIVE (Negative)
[2019-01-18 09:14] LABS: AMP/METHAMP POSITIVE (Negative); BARBITURATES Negative (Negative); BENZODIAZEPINES Negative (Negative); COCAINE Negative (Negative); METHADONE Negative (Negative); OPIATES Negative (Negative); PCP Negative (Negative)
[2019-01-18 09:23] LABS: CASTS None Seen /LPF (None Seen); SQUAMOUS 0-3 Few /LPF (0-3)
[2019-01-18 09:24] LABS: BACTERIA-REFLEX >30 Many /HPF (None Seen); CRYSTALS None Seen /LPF (None Seen); URINE RBC None Seen /HPF (0-2)
--- NOTE | 2019-01-18 13:03 | NUR ---
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 PATIENT LETHARGIC, O2 SATS BETWEEN 94%-95, PROPHYLAXIS OXYGEN VIA NASAL CANNULA GIVEN.
--- NOTE | 2019-01-18 13:08 | NUR ---
PT A&OX4, VSS, OPERATIONAL COMMUNICATION CHIEF PROCEDURE COMPLETED. FAMILY AT BEDSIDE, MEDICATION GIVEN ORDERED, FLUIDS RUNNING ORDERED. NO SIGNS OF DISTRESS, WILL CONTINUE TO MONITOR.
--- NOTE | 2019-01-18 14:19 | NUR ---
ASSESSMENT: CM REVIEWED CHART AND MET WITH PATIENT AT THE BEDSIDE ALONG WITH HER SPOUSE. PT WAS ADMITTED FOR CP AND GOT CATH TODAY. PT REPORTS LIVING IN A HOUSE WITH SPOUSE. IF PT ENTERS THROUGH THE GARAGE THERE ARE ABOUT 10 STEPS WITH HANDRAILS TO THE MAIN LEVEL. PT REPORTS AMBULATING INDEPENDENTLY AND IS INDEPENDENT WITH ADLS. PT REPORTS SHE HAS NO DME OR THE NEED FOR IT. PT HAS NOT HAD HH IN THE PAST. PT HAS HX OF METH USE AND DENIES RESOURCES. CM DISCUSSED ROLE. PT DOES NOT ANTICIPATE HAVING ANY NEEDS AT DISCHARGE.
--- NOTE | 2019-01-18 14:29 | EKG ---
[address] [address] ELECTROCARDIOGRAM REPORT Name: LYNNETTERAHEEM Room #: 354-P ADM IN M.R.#: [id number] ������������������ Admission: 01/17/19 ������������������ Attend Phys: Kedar Riley MD Discharge: ������������������ Date of : 64 Report #: [id number] ����������������������������������������������������������������� [id number] THIS REPORT FOR: //name// [facility] ED Test Date: 2019-01-17 Test Time: 09:42:31 Pat Name: RAHEEM CHURCH Department: Room: 354 Gender: F Correctional Officer Lieutenant: SURAJ : 1960 Requested By: Milind Espino Order Number: [id number] MD: Ousmane Finn Measurements Intervals [place] Rate: 86 P: 57 TN: 152 QRS: 5 QRSD: 106 T: 146 QT: 408 QTc: 488 Interpretive Statements Sinus rhythm Abnrm T, consider ischemia, anterolateral lds Compared to ECG 01/11/2019 14:21:30 Possible ischemia now present Electronically Signed On 01-18-2019 14:29:06 CDT by Ousmane Finn [email or web address] ��������������������������������������������� <ELECTRONICALLY SIGNED> ���������������������������������������� By: Ousmane Finn MD ��������������������������������������������� 01/18/19 1429 0942 0942 Ousmane Finn MD /DHRUV
[2019-01-19 00:11] VITALS: BP 125/83
[2019-01-19 03:33] VITALS: BP 126/77
--- NOTE | 2019-01-19 03:37 | NUR ---
PATIENT IS ALERT AND ORIENTED. PATIENT IS SBA. PATIENTS LBM WAS THE 4TH. PATIENT IS ROOMAIR. PATIENT IS NSR ON TELE. PATIENT RT GROIN SITE IS INTACT. PATIENT HAS NO HEMOTOMIA. PATIENT DENIES PAIN. PATIENT IS RESTING COMFORTABLY IN BED. WCM. PATIENT IS PROGRESSING TO GOALS.
[2019-01-19 05:26] LABS: HEMOGLOBIN 13.6 gm/dL (12.0-15.0); MCH 28.4 pg (26.0-34.0); MCHC 32.5 g/dL (28.0-37.0); MCV 87.4 fL (80.0-100.0); RBC 4.81 mil/uL (4.20-5.00); RDW 13.8 % (10.5-14.5); WBC 8.3 thou/uL (4.0-11.0)
[2019-01-19 05:32] LABS: CALCIUM 8.6 mg/dL (8.5-10.1); CREATININE 0.8 mg/dL (0.6-1.0); POTASSIUM 3.8 mmol/L (3.5-5.1)
[2019-01-19 07:17] VITALS: BP 123/64
[2019-01-19 14:00] VITALS: BP 123/76
[2019-01-19 16:32] VITALS: BP 120/71
--- NOTE | 2019-01-19 18:17 | NUR ---
Patient is anxious regarding anticipated CABG. States her father had one and he later from cardiovascular disease. Caroid ultrasound and vein map performed today. Right groin cath site- no hematoma- no swelling today. Patient is progressing towards goals.
[2019-01-19 19:22] VITALS: BP 127/73
[2019-01-20 04:01] VITALS: BP 121/68
--- NOTE | 2019-01-20 04:15 | NUR ---
PATIENT IS PROGRESSING SLOWLY IN HER CARE PLAN. VITAL SIGNS STABLE WITH PATIENT HAVING NO COMPLAINTS OF CHEST PAIN/TIGHTNESS OR NAUSEA THROUGHOUT SHIFT. FULLY ORIENTED, PATIENT IS ABLE TO CALL APPROPRIATELY FOR NEEDS AND PARTICIPATE IN CARE PLAN. CARDIAC CATH SITE REMAINS CLEAN DRY AND INTACT. UP AD LORRIE THROUGHOUT SHIFT WITHOUT INCIDENT, PATIENT APPEARS STRONG AND BALANCED WHEN AMBULATING. PATIENT IS ANXIOUS FOR POTENTIAL CARDIAC PROCEDURE. CONTINUE PLAN OF CARE.
[2019-01-20 07:39] VITALS: BP 139/75
--- NOTE | 2019-01-20 09:59 | NUR ---
care of pt assumed this am @ ~0700 this am. pt awakened from sleep for assessment and am medications. pt denies any chest pain or pain anywhere else this am. pt denies n/v and no soa. pt aware of potential cardiac procedure tomorrow, which when she speaks about she begins to cry. she states she is nervous and anxious about the procedure as she has a familial hx and lost her father to cardiac hx. pt states her and sister will be up to see and comfort her later today.
[2019-01-20 11:58] VITALS: BP 114/70
[2019-01-20 16:33] VITALS: BP 110/68
[2019-01-20 19:18] VITALS: BP 127/81
[2019-01-21 04:10] VITALS: BP 145/79
--- NOTE | 2019-01-21 07:10 | NUR ---
PATIENT IS PROGRESSING SLOWLY IN HER CARE PLAN. VITAL SIGNS STABLE WITH PATIENT HAVING NO COMPLAINTS OF CHEST PAIN OR NAUSEA. FULLY ORIENTED, PATIENT IS ABLE TO CALL FOR NEEDS AND PARTICIPATE IN CARE. PATIENT DID EXHIBIT ANXIETY WITH NURSE TREATING APPROPRIATELY THROUGH MEDICATION. UP AD LORRIE THROUGHOUT SHIFT INCIDENT FREE. PATIENT IS STABLE AND BALANCED WHEN AMBULATING. PROCEDURE TOMORROW WITH PATIENT STATING ANXIETY. CONTINUE PLAN OF CARE.
[2019-01-21 07:51] VITALS: BP 125/80
--- NOTE | 2019-01-21 08:06 | HC ---
[facility] [place] [address] CONSULTATION Name: RAHEEM CHURCH Room #: 354-P [facility] IN ..#: [id number] Admission: 01/17/19 ������������������ Attend Phys: Kedar Riley MD Discharge: ������������������ Date of : 64 Report #: [id number] THIS REPORT FOR: //name// CC: Yanick Vitale DO Kedar Riley DATE OF SERVICE: 01/20/2019 CONSULTING PHYSICIAN: Dr. Avi Smith. REASON FOR CONSULTATION: Type 2 diabetes mellitus, uncontrolled. HISTORY OF PRESENT ILLNESS: This is a 58-year-old female patient whose medical background is noted for hypertension, hyperlipidemia, possible diabetes mellitus and colitis, who presented to the Emergency Room with complaints of chest pain. On further questioning, the patient notes that she has had intermittent chest heaviness for the past 2 months, but that this had gotten more intense and bothersome over the past few days preceding her admission. Also, her background is noted for vascular mesenteric ischemia, resulting in a stent placement 2 years ago. The patient was admitted for further monitoring and evaluation and underwent a catheterization procedure, which concluded that she had to undergo a CABG procedure, which is being planned for Monday. During her stay, the patient was noted to have hyperglycemia and was evaluated further and found to have a hemoglobin A1c of 7.3%, confirming the notion of type 2 diabetes mellitus. When questioned about his history, the patient alluded to the fact that Dr. Vitale had pointed this out in fact in the past and urged her to adopt a more proactive lifestyle changes as well as start metformin therapy, told both of which she has not committed to. However, the patient is not aware of any diabetic complications and has not monitored blood glucose values at home. REVIEW OF SYSTEMS: CONSTITUTIONAL: Fatigue, tiredness, but no weight changes or fever or chills. HEENT: Negative for ear drainage, earache, sinus pain. PULMONARY: Occasional shortness of breath, but no cough or hemoptysis. CARDIAC: Chest pain, occasional palpitations, but not syncope or presyncope. GASTROINTESTINAL: The patient has active issues with IBS, resulting in intermittent difficulties with abdominal discomfort, constipation, but no nausea or vomiting. NEUROLOGIC: Negative for loss of consciousness, headaches or seizure activity. PSYCHIATRIC: No delusions, hallucinations. [address] [address] CONSULTATION Name: RAHEEM CHURCH Room #: 354-P [facility] IN .R.#: [id number] Admission: 01/17/19 ������������������ Attend Phys: Kedar Riley MD Discharge: ������������������ Date of : 64 Report #: [id number] SKIN: No rash, ulceration or discoloration. HEMATOLOGY: Negative for bleeding or ecchymosis. Otherwise, review of systems noncontributory other than those mentioned in HPI. PAST MEDICAL HISTORY: 1. Hypertension. 2. Hyperlipidemia. 3. Type 2 diabetes mellitus. 4. Ischemic colitis. 5. Irritable bowel syndrome. ALLERGIES: LIDOCAINE, XYLOCAINE. MEDICATIONS: As an outpatient lisinopril that she takes only intermittently. CURRENT MEDICATIONS: Include Tylenol p.r.n., aspirin 325 mg daily, atorvastatin 40 mg at bedtime, Colace 100 mg b.i.d., Lovenox 40 mg at bedtime, hydrochlorothiazide 25 mg daily, Humalog supplemental scale coverage, lisinopril 20 mg daily, metoprolol 25 mg daily, Protonix 40 mg daily, Senokot and Valtrex 500 mg b.i.d. FAMILY HISTORY: Noncontributory. SOCIAL HISTORY: , has one child. Smokes a pack per day and has done so for the past 20 years. Works in car sales. PHYSICAL EXAMINATION: GENERAL: A pleasant female patient who is not in apparent pain or distress, but appears a bit anxious. VITAL SIGNS: Blood pressure is 114/70 mmHg, heart rate is 81 beats per minute, respirations 16 per minute, temperature is 36.6 degrees. CONSTITUTIONAL: She appears comfortable, not in apparent distress, but a bit anxious. HEENT: Anicteric sclerae. Intact extraocular motions. NECK: Supple, without JVD, carotid bruits or lymphadenopathy. I do not appreciate thyromegaly. CHEST: Noted for moderate air entry bilaterally without wheezes, rales or crackles. CARDIOVASCULAR: Regular rate and rhythm without murmurs or gallops. ABDOMEN: Soft and lax without tenderness or organomegaly. She has active bowel sounds. EXTREMITIES: Lower extremity exam is negative for ankle edema. Good pedal pulses bilaterally. NEUROLOGIC: Awake, alert and oriented to time, place and person. The remainder of her examination is nonfocal. PSYCHIATRIC: Normal mood and affect, appropriately interactive. [address] [address] CONSULTATION Name: YAZ CHURCHTANGELA Gomez Room #: 354-P [facility] IN M.R.#: [id number] Admission: 01/17/19 ������������������ Attend Phys: Kedar Riley MD Discharge: ������������������ Date of : 64 Report #: [id number] SKIN: No rash, ulceration or other skin changes. LABORATORY STUDIES: Blood glucose values have ranged between 99 and 258 mg/dL, sodium 139, potassium 3.8, chloride 104, CO2 of 28, anion gap 7, BUN 13, creatinine 0.8, glucose 155, AST 21, total bilirubin 0.3, calcium 8.6, magnesium 2.0, alkaline phosphatase 97, ALT 32, total protein 7.0, albumin 3.3, GFR 74. Lactic acid 1.5, CPK 145, total cholesterol 186, triglycerides 155, HDL 38, LDL 117. INR 1.0. White blood count 8.3, hemoglobin 13.6, hematocrit 42, platelets 223. Hemoglobin A1c 7.3%. ASSESSMENT AND PLAN: 1. Type 2 diabetes mellitus. The patient's recorded blood glucose values as well as her hemoglobin A1c without a doubt point in the direction of established type 2 diabetes mellitus. It appears that the patient has gotten some forewarning about this in the past, but did not commit to lifestyle changes or to metformin therapy as advised. The patient and I spent a good bit of time discussing the pathogenesis of type 2 diabetes mellitus, associated complications both microvascular and macrovascular and I made a case that her existing vascular disease could have been contributed to by diabetes at least in part. I stressed the need to adopt a proactive and sustained changes going forward, so as to control diabetes mellitus and prevent complications. The patient seemed enthusiastic about that notion. In the immediate setting, her blood glucose values have fluctuated above the intended short term goal range of 100-180 mg/dL. She has an open heart surgery scheduled for Monday and as such, I would like to stay away from hypoglycemic agents given the expected n.p.o. state and perioperative disruption of p.o. intake. That said, I will start her on Tradjenta 5 mg daily and maintain the coverage with Humalog supplemental scale as needed. Upon discharge, the patient would be a great candidate for Glucophage or for metformin therapy. I would very much like to get her a meeting with our dietitian as well before she leaves the hospital to get more direction on the necessary dietary changes which she seems intended to take on after she goes home. 2. Hypertension. The patient's level of blood pressure control is adequate. She is to continue with the current regimen. 3. Hyperlipidemia. The patient's level of lipid control is not adequate given her diabetic state and established cardiovascular disease. I certainly agree with the initiation of atorvastatin therapy and I urged the patient to maintain this going forward [address] [place] [address] CONSULTATION Name: RAHEEM CHURCH Room #: 354-P [facility] IN ..#: [id number] Admission: 01/17/19 ������������������ Attend Phys: Kedar Riley MD Discharge: ������������������ Date of : 64 Report #: [id number] I certainly appreciate the opportunity to participate in the care of Dr. Smith's patient. ��������������������������������������������� <ELECTRONICALLY SIGNED> ���������������������������������������� By: Sharda Chong MD ��������������������������������������������� 01/21/19 0806 1227 [id number] Sharda Chong MD /nt
[2019-01-21 08:48] LABS: ABSOLUTE NEUTROPHILS 6.3 thou/uL (1.4-8.2); BASOPHILS 0.7 % (0.0-2.0); EOSINOPHILS 2.6 % (0.0-3.0); HEMATOCRIT 45.7 % (37.0-47.0); HEMOGLOBIN 15.1 gm/dL (12.0-15.0); LYMPHOCYTES 22.1 % (24.0-44.0); MCV 87.7 fL (80.0-100.0); MONOCYTES 6.5 % (1.0-8.0); PLATELET COUNT 260 thou/uL (150-400); POLYS 68.1 % (36.0-66.0); WBC 9.3 thou/uL (4.0-11.0)
[2019-01-21 08:51] LABS: CREATININE 0.8 mg/dL (0.6-1.0)
[2019-01-21 08:57] LABS: ALBUMIN 3.3 g/dL (3.4-5.0); TOTAL BILIRUBIN 0.2 mg/dL (<0.1-1.0); TOTAL PROTEIN 6.7 g/dL (6.4-8.2)
[2019-01-21 09:00] LABS: APTT 29.6 Seconds (24.5-32.8); PROTIME 9.8 Seconds (9.3-11.4)
--- NOTE | 2019-01-21 11:49 | NUR ---
ON-GOING ASSESSMENT: CM REVIEWED CHART AND SPOKE WITH ATTENDING. PT IS TO HAVE CABG Monday01/22/19. CM WILL CONTINUE TO FOLLOW TO ASSIST NEEDED.
[2019-01-21 15:35] LABS: URINE BILIRUBIN NEGATIVE (Negative); URINE BLOOD TRACE (Negative); URINE CLARITY CLEAR; URINE COLOR YELLOW; URINE GLUCOSE-RANDOM* NEGATIVE (Negative); URINE KETONES NEGATIVE (Negative); URINE LEUKOCYTES-REFLEX 2+ (Negative); URINE NITRITE-REFLEX NEGATIVE (Negative); URINE PROTEIN (DIPSTICK) NEGATIVE (Negative); URINE UROBILINOGEN 0.2 E.U./dl (0.2-1.0)
[2019-01-21 15:48] LABS: BACTERIA-REFLEX >30 Many /HPF (None Seen); CASTS None Seen /LPF (None Seen); CRYSTALS None Seen /LPF (None Seen); SQUAMOUS 4-10 Moderate /LPF (0-3); URINE RBC None Seen /HPF (0-2); URINE WBC-REFLEX None Seen /HPF (0-5)
[2019-01-21 17:04] VITALS: BP 102/58
--- NOTE | 2019-01-21 17:39 | NUR ---
ASSUMED PATIENT CARE AT 0700. A/O X4. DENIES CHEST PAIN. UP AD LORRIE. PATIENT HAD THREE BM ON THIS SHIFT. WILL TRANSFER TO [facility] SOON TO BE READY TOMORROW CABG.
[2019-01-21 19:14] VITALS: BP 133/78
[2019-01-22 00:09] LABS: GLYCOHEMOGLOBIN (HGB A1C) 7.3 % (4.8-5.6)
--- NOTE | 2019-01-22 02:46 | NUR ---
PATIENT IS ALERT AND ORIENTED. PATIENT IS UP AD LORRIE. PATIENT IS NSR ON TELE. PATIENT HAS BEEN NPO SENSE MIDNIGHT. PATIENTS LBM WAS THE 9TH. PATIENT IS PENDING SURGERY TODAY. PATIENT DID NOT TAKE INSULIN DUE TO SURGERY AND NPO STATUS. PATIENT IS ON ROOM AIR. PATIENT SHOWERED THIS SHIFT. PATIENT DENIES CHEST PAIN. PATIENT IS RESTING COMFORTABLY IN BED. WCM. PATIENT IS PROGRESSING TO GOALS.
[2019-01-22 04:42] VITALS: BP 114/66
[2019-01-22 13:53] LABS: HEMATOCRIT 20.5 % (37.0-47.0); RBC 2.32 mil/uL (4.20-5.00)
[2019-01-22 13:54] LABS: MCH 28.9 pg (26.0-34.0); MCHC 32.7 g/dL (28.0-37.0); MCV 88.5 fL (80.0-100.0); RDW 13.7 % (10.5-14.5); WBC 12.6 thou/uL (4.0-11.0)
[2019-01-22 13:56] LABS: HEMOGLOBIN 6.7 gm/dL (12.0-15.0)
[2019-01-22 15:37] LABS: HEMATOCRIT 23.1 % (37.0-47.0); HEMOGLOBIN 7.7 gm/dL (12.0-15.0); MCH 30.6 pg (26.0-34.0); MCHC 33.3 g/dL (28.0-37.0); MCV 91.9 fL (80.0-100.0); RBC 2.51 mil/uL (4.20-5.00); RDW 14.7 % (10.5-14.5); WBC 9.8 thou/uL (4.0-11.0)
[2019-01-22 16:00] LABS: PROTIME 32.2 Seconds (9.3-11.4)
[2019-01-22 16:01] LABS: APTT 55.6 Seconds (24.5-32.8); INR 3.1
[2019-01-22 16:02] LABS: FIBRINOGEN 54.8 mg/dL (210-360)
[2019-01-22 17:13] LABS: HEMATOCRIT 28.1 % (37.0-47.0); HEMOGLOBIN 9.4 gm/dL (12.0-15.0); MCH 30.3 pg (26.0-34.0); MCHC 33.6 g/dL (28.0-37.0); MCV 90.1 fL (80.0-100.0); RBC 3.12 mil/uL (4.20-5.00); RDW 13.8 % (10.5-14.5); WBC 18.5 thou/uL (4.0-11.0)
[2019-01-22 17:29] LABS: FIBRINOGEN 210.3 mg/dL (210-360); PROTIME 13.4 Seconds (9.3-11.4)
[2019-01-22 17:31] LABS: APTT 34.1 Seconds (24.5-32.8); INR 1.3
[2019-01-22 17:35] LABS: POC BE -1 mmol/L (-2.0 to +3.0); POC CA IONIZED 3.2 mg/dL (4.5-5.3); POC GLUCOSE 208 mg/dL (70-99); POC HCO3 24.2 mmol/L (22.0-26.0); POC HEMOGLOBIN 6.1 g/dL (12.0-15.0); POC POTASSIUM 4.1 mmol/L (3.5-5.1); POC SODIUM 141 mmol/L (136-145); POC pCO2 39.7 mmHg (35.0-45.0); POC pH 7.392 (7.360-7.450)
[2019-01-22 17:35] LABS: POC BE 1 mmol/L (-2.0 to +3.0); POC CA IONIZED 3.5 mg/dL (4.5-5.3); POC GLUCOSE 230 mg/dL (70-99); POC HCO3 25.7 mmol/L (22.0-26.0); POC HEMOGLOBIN 6.8 g/dL (12.0-15.0); POC POTASSIUM 4.1 mmol/L (3.5-5.1); POC SODIUM 139 mmol/L (136-145); POC pCO2 38.6 mmHg (35.0-45.0)
[2019-01-22 17:35] LABS: POC BE 7 mmol/L (-2.0 to +3.0); POC CA IONIZED 4.6 mg/dL (4.5-5.3); POC GLUCOSE 192 mg/dL (70-99); POC HCO3 30.6 mmol/L (22.0-26.0); POC HEMOGLOBIN 14.6 g/dL (12.0-15.0); POC POTASSIUM 4.9 mmol/L (3.5-5.1); POC SODIUM 136 mmol/L (136-145); POC pCO2 42.5 mmHg (35.0-45.0); POC pH 7.465 (7.360-7.450)
[2019-01-22 17:35] LABS: POC BE -7 mmol/L (-2.0 to +3.0); POC CA IONIZED 2.3 mg/dL (4.5-5.3); POC GLUCOSE 152 mg/dL (70-99); POC HCO3 19.3 mmol/L (22.0-26.0); POC HEMOGLOBIN 8.5 g/dL (12.0-15.0); POC POTASSIUM 3.5 mmol/L (3.5-5.1); POC SODIUM 149 mmol/L (136-145); POC pCO2 38.1 mmHg (35.0-45.0); POC pH 7.313 (7.360-7.450)
[2019-01-22 17:35] LABS: POC BE -10 mmol/L (-2.0 to +3.0); POC CA IONIZED 2.7 mg/dL (4.5-5.3); POC GLUCOSE 194 mg/dL (70-99); POC HEMOGLOBIN 6.1 g/dL (12.0-15.0); POC POTASSIUM 3.8 mmol/L (3.5-5.1); POC SODIUM 147 mmol/L (136-145); POC pCO2 36.5 mmHg (35.0-45.0); POC pH 7.275 (7.360-7.450)
[2019-01-22 17:35] LABS: POC BE 4 mmol/L (-2.0 to +3.0); POC CA IONIZED 3.4 mg/dL (4.5-5.3); POC GLUCOSE 232 mg/dL (70-99); POC HCO3 28.4 mmol/L (22.0-26.0); POC HEMOGLOBIN 6.5 g/dL (12.0-15.0); POC POTASSIUM 4.5 mmol/L (3.5-5.1); POC SODIUM 139 mmol/L (136-145); POC pCO2 42.5 mmHg (35.0-45.0); POC pH 7.433 (7.360-7.450)
[2019-01-22 17:35] LABS: POC BE -2 mmol/L (-2.0 to +3.0); POC CA IONIZED 4.6 mg/dL (4.5-5.3); POC GLUCOSE 258 mg/dL (70-99); POC HCO3 23.6 mmol/L (22.0-26.0); POC HEMOGLOBIN 12.9 g/dL (12.0-15.0); POC SODIUM 136 mmol/L (136-145); POC pCO2 41.2 mmHg (35.0-45.0); POC pH 7.366 (7.360-7.450)
[2019-01-22 17:35] LABS: POC BE 2 mmol/L (-2.0 to +3.0); POC CA IONIZED 4.5 mg/dL (4.5-5.3); POC GLUCOSE 178 mg/dL (70-99); POC HCO3 26.9 mmol/L (22.0-26.0); POC HEMOGLOBIN 13.6 g/dL (12.0-15.0); POC SODIUM 138 mmol/L (136-145); POC pCO2 41.4 mmHg (35.0-45.0); POC pH 7.421 (7.360-7.450)
[2019-01-22 17:35] LABS: POC BE -4 mmol/L (-2.0 to +3.0); POC CA IONIZED 3.8 mg/dL (4.5-5.3); POC GLUCOSE 241 mg/dL (70-99); POC HEMOGLOBIN 6.8 g/dL (12.0-15.0); POC POTASSIUM 2.8 mmol/L (3.5-5.1); POC SODIUM 140 mmol/L (136-145); POC pCO2 41.2 mmHg (35.0-45.0); POC pH 7.336 (7.360-7.450)
[2019-01-22 17:35] LABS: POC BE -1 mmol/L (-2.0 to +3.0); POC CA IONIZED 3.1 mg/dL (4.5-5.3); POC GLUCOSE 186 mg/dL (70-99); POC HEMOGLOBIN 5.8 g/dL (12.0-15.0); POC POTASSIUM 4.2 mmol/L (3.5-5.1); POC SODIUM 139 mmol/L (136-145); POC pCO2 41.3 mmHg (35.0-45.0); POC pH 7.372 (7.360-7.450)
[2019-01-22 17:58] VITALS: BP 96/57
[2019-01-22 18:00] VITALS: BP 97/56
[2019-01-22 18:02] LABS: BE(vivo) -4.5 mmol/L (-2 to +3); PCO2 53.4 mmHg (35.0-45.0); PO2 71.5 mmHg (80.0-100.0); pH 7.252 (7.360-7.450); sO2 91.6 % (92.0-98.0)
[2019-01-22 18:06] LABS: BE(vivo) -5.3 mmol/L (-2 to +3); PO2 VENOUS 71.8 mmHg (35.0-45.0)
[2019-01-22 18:21] LABS: POTASSIUM 4.3 mmol/L (3.5-5.1)
[2019-01-22 18:55] LABS: CALCIUM 7.5 mg/dL (8.5-10.1); HEMATOCRIT 29.8 % (37.0-47.0); HEMOGLOBIN 10.1 gm/dL (12.0-15.0); MCH 30.9 pg (26.0-34.0); MCHC 33.9 g/dL (28.0-37.0); RBC 3.28 mil/uL (4.20-5.00); RDW 13.8 % (10.5-14.5)
--- NOTE | 2019-01-22 19:28 | NUR ---
PT ARRIVED THE UNIT AROUND APPROXIMATELY 1755, PT ARRIVED WITH THE ASSIST OF NURSING STAFF, ANESTHESIOLOGIST AND SURGEON. PT ARRIVED ON PROPOFOL, DOBUTAMINE, CAMERON AND INSULIN GTT. PT IN ST AT ARRIVAL, SWAN IN PLACE, PACEMAKER CONNECTED BUT NOT TURNED ON. CHEST TUBE X 3, 2 MEDIASTINAL AND 1 PLEURAL, OUTPUT NOTED AND DOCUMENTED. 2 DEVON DRAINS, 1 TO RIGHT LEG AND 1 TO LEFT LEG. ROD IN PLACE, OUTPUT NOTED AND DOCUMENTED. PT SETTLED IN WITHOUT ANY COMPLICATIONS. LABS SENT DOWN AND [facility]IAL ABG'S CALLED TO DR WHITAKER A BEDSIDE. REPORT GIVEN TO LUZMARIA SUAREZ.
[2019-01-22 19:52] VITALS: BP 154/74
[2019-01-22 21:53] LABS: BE(vivo) -4.5 mmol/L (-2 to +3); HCO3 20.1 mmol/L (22.0-26.0); PCO2 35.3 mmHg (35.0-45.0); PO2 96.8 mmHg (80.0-100.0); pH 7.373 (7.360-7.450); sO2 97.3 % (92.0-98.0)
[2019-01-22 22:42] LABS: HEMATOCRIT 30.3 % (37.0-47.0); HEMOGLOBIN 10.3 gm/dL (12.0-15.0)
[2019-01-23] VITALS (16 sets, daily range): BP systolic 116–133; BP diastolic 59–76
[2019-01-23 01:00] LABS: BE(vivo) -5.3 mmol/L (-2 to +3); HCO3 19.3 mmol/L (22.0-26.0); PCO2 34.5 mmHg (35.0-45.0); PO2 92.7 mmHg (80.0-100.0); pH 7.365 (7.360-7.450); sO2 96.9 % (92.0-98.0)
[2019-01-23 05:16] LABS: HCO3 21.1 mmol/L (22.0-26.0); PCO2 34.4 mmHg (35.0-45.0); PO2 103.2 mmHg (80.0-100.0); pH 7.406 (7.360-7.450); sO2 97.8 % (92.0-98.0)
[2019-01-23 06:16] LABS: HEMATOCRIT 29.9 % (37.0-47.0); HEMOGLOBIN 10.3 gm/dL (12.0-15.0); MCH 30.8 pg (26.0-34.0); MCHC 34.3 g/dL (28.0-37.0); MCV 89.6 fL (80.0-100.0); RBC 3.34 mil/uL (4.20-5.00); RDW 14.2 % (10.5-14.5); WBC 12.2 thou/uL (4.0-11.0)
[2019-01-23 06:39] LABS: CALCIUM 7.2 mg/dL (8.5-10.1); CREATININE 1.1 mg/dL (0.6-1.0); MAGNESIUM 2.1 mg/dL (1.8-2.4); POTASSIUM 4.2 mmol/L (3.5-5.1)
--- NOTE | 2019-01-23 07:15 | NUR ---
Pt remains intubated and slowly progressing. VS stable with Cardene gtt turned off. Low dose precedex gtt going and pt remains calm. PRN fentanyl and hydrocodones given for breakthrough restlessness with desired effects achieved. SpO2 adequate on current vent settings and chest tube drainage minimal. Large amount of urine output for shift. Am lab results noted, continue with POC.
--- NOTE | 2019-01-23 08:19 | EKG ---
[address] [place] [address] ELECTROCARDIOGRAM REPORT Name: RAHEEM CHURCH Room #: 236-P [facility] IN M.R.#: [id number] ������������������ Admission: 01/17/19 ������������������ Attend Phys: Kedar Riley MD Discharge: ������������������ Date of : 64 Report #: [id number] ����������������������������������������������������������������� [id number] THIS REPORT FOR: //name// [facility] Test Date: 2019-01-22 Test Time: 19:30:00 Pat Name: RAHEEM CHURCH Department: Room: 236 Gender: F Medical Records Administrator: Josh HAGEN : 1960 Requested By: Alberto Silva Order Number: [id number] MD: Pranay Mcdonald Measurements Intervals [place] Rate: 123 P: 0 AL: 103 QRS: 60 QRSD: 96 T: 234 QT: 380 QTc: 544 Interpretive Statements Sinus tachycardia ST and T wave abnormality, consider ischemia Prolonged QT interval Compared to ECG 01/17/2019 09:42:31 Prolonged QT interval now present Electronically Signed On 01-23-2019 8:18:47 CDT by Pranay Mcdonald [email or web address] ��������������������������������������������� <ELECTRONICALLY SIGNED> ���������������������������������������� By: Pranay Mcdonald MD, [facility] ��������������������������������������������� 01/23/19817 29 29 Pranay Mcdonald MD, [facility] /EPI
--- NOTE | 2019-01-23 08:22 | EKG ---
[place] [address] [place] [address] ELECTROCARDIOGRAM REPORT Name: RAHEEM CHURCH Room #: 236-P ADM IN M.R.#: [id number] ������������������ Admission: 01/17/19 ������������������ Attend Phys: Kedar Riley MD Discharge: ������������������ Date of : 64 Report #: [id number] ����������������������������������������������������������������� [id number] THIS REPORT FOR: //name// [facility] Test Date: 2019-01-23 Test Time: 07:19:00 Pat Name: RAHEEM CHURCH Department: Room: 236 P Gender: F Stock Sorter: FAHAD : 1960 Requested By: Alberto Silva Order Number: [id number] MD: Pranay Mcdonald Measurements Intervals [place] Rate: 86 P: 56 PA: 145 QRS: 39 QRSD: 97 T: 175 QT: 433 QTc: 518 Interpretive Statements Sinus rhythm Low voltage Abnrm T, consider ischemia, anterolateral lds Prolonged QT interval Compared to ECG 01/17/2019 09:42:31 ST and T wave abnormality less pronounced Electronically Signed On 01-23-2019 8:22:29 CDT by Pranay Mcdonald [email or web address] ��������������������������������������������� <ELECTRONICALLY SIGNED> ���������������������������������������� By: Pranay Mcdonald MD, [facility] ��������������������������������������������� 01/23/19821 8 8 Pranay Mcdonald MD, [facility] /EPI
--- NOTE | 2019-01-23 08:48 | NUR ---
Assess for length of stay and RD consult received. Hx DM (A1C 7.5%), HTN, HLD, +tobacco, etoh, and meth. S/P CABG x 4 on 01/22. Triglycerides 155, LDL 117. Unknown wt hx. Was eating well prior to surgery. NPO and pending extubation. Will address nutrition education needs, lifestyle changes once transferred out of ICU and at more appropriate time. Otherwise low nutrition risk
[2019-01-23 08:58] LABS: BE(vivo) -3.2 mmol/L (-2 to +3); HCO3 20.9 mmol/L (22.0-26.0); PCO2 33.3 mmHg (35.0-45.0); PO2 143.3 mmHg (80.0-100.0); pH 7.415 (7.360-7.450); sO2 98.9 % (92.0-98.0)
--- NOTE | 2019-01-23 18:28 | NUR ---
PT PROGRESSING SLOWLY TOWARDS GOALS. EXTUBATED TODAY AT 0915, CURRENTLY ON 2 l NASAL CANNULA. OOB X 1 BP HIGH AND PT IN PAIN SO FENTANYL GIVEN. PT VERY SLEEPY AFTER THAT, UNABLE TO GET UP FOR DINNER. AROUSES TO NAME. POOR APPITITE. CHEST TUBES REMAIN IN AT THIS POINT.
[2019-01-24] VITALS (17 sets, daily range): BP systolic 83–122; BP diastolic 34–69
[2019-01-24 05:37] LABS: HEMATOCRIT 23.6 % (37.0-47.0); MCH 30.6 pg (26.0-34.0); MCHC 33.7 g/dL (28.0-37.0); RBC 2.59 mil/uL (4.20-5.00); RDW 14.5 % (10.5-14.5); WBC 17.1 thou/uL (4.0-11.0)
[2019-01-24 05:42] LABS: CALCIUM 7.6 mg/dL (8.5-10.1); CREATININE 0.7 mg/dL (0.6-1.0); POTASSIUM 4.2 mmol/L (3.5-5.1)
[2019-01-24 06:03] LABS: HEMOGLOBIN 7.9 gm/dL (12.0-15.0)
--- NOTE | 2019-01-24 06:10 | NUR ---
Pt with episode of hypotension when she up in chair this am. No symptoms. BP has improved on it own after 5 mins. She is very slow in progress tonight.
--- NOTE | 2019-01-24 17:10 | EKG ---
[address] [place] [address] ELECTROCARDIOGRAM REPORT Name: RAHEEM CHURCH Room #: 242-P ADM IN M.R.#: [id number] ������������������ Admission: 01/17/19 ������������������ Attend Phys: Kedar Riley MD Discharge: ������������������ Date of : 64 Report #: [id number] ����������������������������������������������������������������� [id number] THIS REPORT FOR: //name// [facility] Test Date: 2019-01-24 Test Time: 16:39:34 Pat Name: RAHEEM CHURCH Department: Room: 242 P Gender: F Inspector Open Die: Josh HAGEN : 1960 Requested By: Mina Kirby Order Number: [id number] MD: Pranay Mcdonald Measurements Intervals [place] Rate: 95 P: 51 [place]: 150 QRS: 89 QRSD: 101 T: -65 QT: 362 QTc: 455 Interpretive Statements Sinus rhythm Poor R wave progression Borderline repolarization abnormality Compared to ECG 01/23/2019 07:19:00 ST and T wave abnormality is less pronounced Prolonged QT interval no longer present Electronically Signed On 01-24-2019 17:10:36 CDT by Pranay Mcdonald [email or web address] ��������������������������������������������� <ELECTRONICALLY SIGNED> ���������������������������������������� By: Pranay Mcdonald MD, [facility] ��������������������������������������������� 01/24/19 1710 1639 1639 Pranay Mcdonald MD, [facility] /EPI
--- NOTE | 2019-01-24 19:24 | NUR ---
END OF SHIFT NOTE. PT OOB X 2. VSS. ART LINE SOMEWHAT POSITIONAL. VERY DROWSY. PAIN UNDER CONTROL. PT PROGRESSING TOWARDS. GOALS.
[2019-01-25] VITALS (18 sets, daily range): BP systolic 83–124; BP diastolic 41–62
[2019-01-25 05:57] LABS: HEMATOCRIT 20.9 % (37.0-47.0); HEMOGLOBIN 7.1 gm/dL (12.0-15.0); MCH 31.2 pg (26.0-34.0); MCV 91.9 fL (80.0-100.0); RBC 2.27 mil/uL (4.20-5.00); RDW 14.5 % (10.5-14.5); WBC 15.5 thou/uL (4.0-11.0)
--- NOTE | 2019-01-25 07:22 | NUR ---
0615 PT UP TO CHAIR FROM BED THIS AM. PT EXTREMELY WEAK AND SMALL STEPS TAKE AND SEEMED UNSTEADY ON FEET. ATTEMPTED TO GET PT UP TO STANDING SCALE TO GET AM WEIGHT. BY THE TIME WE GOT PT UP TO SCALE, IT HAD SHUT OFF AND PT WAS SO WIPED OUT AND NEEDED TO GET TO CHAIR TO REST. LET DAY RN KNOW THAT STANDING WT STILL NEEDS TO BE DONE. PT NOW RESTING IN CHAIR AND PAIN WAS 8/10 BUT IS NOW 0/10.
--- NOTE | 2019-01-25 07:50 | NUR ---
UP IN CHAIR THIS AM, VERY DROWSY. DOZING OFF EVEN WHEN IN CONVERSATION. SR, BLOOD PRESSURES MARGINAL, NIBP AND JAVIER CORRELATE. TAKING DEEP BREATHS/COUGH, PULLING 500 ON INCENTIVE SPIROMETER. ENCOURAGING INVOLVEMENT IN CARE TO IMPROVE PULMONARY STATUS.
--- NOTE | 2019-01-25 09:45 | NUR ---
RADIAL JAVIER DC'D, DRESSINGS DC'D MARA LEGS AND WEEPING INCISIONS-DRESSINGS REAPPLIED. MCT SITES DRESSINGS REAPPLIED. Ricardo GARCIA DC'D PACING WIRES AND PCT. SMALL AMOUNT OF PEACHES CONSUMED FOR BREAKFAST, DRINKING WATER.
--- NOTE | 2019-01-25 10:30 | NUR ---
PCXR COMPLETED POST PACING WIRES AND PCT REMOVAL. ROD DC'D, WELL TOLERATED. PT RESTING QUIETLY WHEN UNDISTURBED.
--- NOTE | 2019-01-25 10:31 | NUR ---
PT IS POD #3 CABG AND WAS UP IN CHAIR THIS AM. ROD, ART LINE, CHEST TUBES AND PACER WIRES DC'D TODAY. PLAN TO INCREASE MOBILIZATION. PT LIVES AT HOME WITH SPOUSE AND WAS INDEPENDENT WITH ADLS. THERAPY EVALS INDICATE ON GOING ASSESSMENT NEEDED. PT CTS PA, LIKELY NO W/E DISCHARGE.
--- NOTE | 2019-01-25 16:56 | NUR ---
PT PROGRESSING TODAY. AFTER RESTING FOR 2 1/2 HOURS, PT UP TO WHEELCHAIR. PAIN CONTROLLED WITH ONE HYDROCODONE. SR, 2L/NC, TAKING DEEP BREATHS/COUGH AND OR USING INCENTIVE SPIROMETER PULLING 500-750 WHILE SPLINTING HEART PILLOW. PRODUCTIVE COUGH WITH DARK SPUTUM PROGRESSING TO CLEAR. URINARY INCONTINENCE WHEN AMBULATING SEVERAL STEPS TO TOILET. DEVON DRAIN IN R LOWER LEG WITH BLOODY DRAINAGE. REPORT GIVEN TO ERICK LUJAN. PT TRANSFERRED PER WHEELCHAIR ACCOMPANIED BY 2 RN'S TO CCU RM# 210.
--- NOTE | 2019-01-25 17:36 | NUR ---
PT TRANSFERED TO UNIT FROM THE ICU @1700, ORIENTED TO ROOM AND BEDSPACE CHRISTINE DIET AND FLUIDS. NO CO'S OF PAIN OR NASUEA. ACCUCHECK CHARTED COVERED PER SSI. DRESSINGS REMAIN INSITU, VAC INSITU TO MIDLINE CHEST INCISION. NO CO'S AT THE PRESENT TIME.
--- NOTE | 2019-01-25 18:15 | NUR ---
PT NOT GIVEN INSULIN WITH DINNER - PT REFUSED DINNER
--- NOTE | 2019-01-25 20:57 | HC ---
[facility] [place] [address] CONSULTATION Name: RAHEEM CHURCH Jason Room #: 210-P [facility] IN ..#: [id number] Admission: 01/17/19 ������������������ Attend Phys: Kedar Riley MD Discharge: ������������������ Date of : 64 Report #: [id number] THIS REPORT FOR: //name// CC: Yanick Riley DATE OF SERVICE: 01/18/2019 Dr. Kirby asked us to see the patient. HISTORY OF PRESENT ILLNESS: The patient is a 58-year-old with coronary artery disease. The patient was admitted on 01/17/2019 with chest pain. The patient states that she was having chest pain and pressure on the chest at rest and with low levels of exertion. The patient states that this was a recent problem and she has not had this before last week or so. At that time, the patient states it was associated with shortness of breath, but no nausea or vomiting and there is no history of radiation of the pain. PAST MEDICAL HISTORY: Significant for hypertension. We also note that the patient has a history of methamphetamine use. The patient's primary physician is Dr. Vitale. PAST MEDICAL HISTORY: Significant for hypertension and diabetes mellitus. MEDICATIONS: At home includes lisinopril, hydrochlorothiazide, and valacyclovir. ALLERGIES: LIDOCAINE. OTHER PAST HISTORY: Significant for mesenteric ischemia with stent to the mesenteric artery in 08/2016. SOCIAL HISTORY: The patient is a tobacco and alcohol user and as mentioned, recreational drug usage. The patient is . REVIEW OF SYSTEMS: CONSTITUTIONAL: No fever. HEENT: Denies swallowing problems. Denies headache. Denies nasal discharge. EYES: Denies vision change. RESPIRATORY: Significant for chest tightness and shortness of breath with exertion. CARDIAC: As mentioned, angina with low levels of exertion and rest. No palpitations. GASTROINTESTINAL: No nausea, vomiting, diarrhea or pain. GENITOURINARY: No urgency, frequency, burning or blood. [facility] [address] [place] [address] CONSULTATION Name: RAHEEM CHURCH Room #: 210-[facility]#: [id number] Admission: 01/17/19 ������������������ Attend Phys: Kedar Riley MD Discharge: ������������������ Date of : 64 Report #: [id number] MUSCULOSKELETAL: No bone or joint pain. NEUROLOGIC: No motor or sensory dysfunction. PSYCHIATRIC: As mentioned, issues related to substance abuse. PHYSICAL EXAMINATION: VITAL SIGNS: Temperature 36.5, heart rate 76, blood pressure 135/82. GENERAL: The patient is lying in bed when I saw her after cardiac catheterization. HEENT: No scleral icterus, no arcus. No oral injection or nasal discharge. NECK: No mass, no bruit audible. CHEST: Clear to auscultation. HEART: Rhythm regular, no murmurs audible. ABDOMEN: Soft, mild obesity. No mass, no tenderness. EXTREMITIES: Some superficial varicosities. No clubbing, cyanosis or edema. SKIN: No rash or infection. MUSCULOSKELETAL: No asymmetry or deformity. NEUROLOGIC: No obvious motor or sensory dysfunction. PSYCHIATRIC: Affect a bit flat, but answers questions appropriately and seems to understand the situation. ASSESSMENT: The patient had cardiac catheterization that showed severe 3-vessel disease with satisfactory ventricular function. Risks and details of surgery were discussed. Options and alternatives were reviewed. Risks include, but are not limited to bleeding, infection, anesthesia risks, heart and lung problems, stroke and . Options and alternatives were reviewed. The patient understands all of this and wishes to proceed. I will try to find a date on the schedule for surgery. Thank you for the consult. ��������������������������������������������� <ELECTRONICALLY SIGNED> ���������������������������������������� By: Marcelo Arrington MD ��������������������������������������������� 01/25/19 2057 1228 0048 Marcelo Arrington MD /nt
--- NOTE | 2019-01-25 20:57 | O ---
[facility] [address] OPERATIVE REPORT Name: RAHEEM CHURCH Jason Room #: 210-P [facility] IN .R.#: [id number] Admission: 01/17/19 ������������������ Attend Phys: Kedar Riley MD Discharge: ������������������ Date of : 64 Report #: [id number] THIS REPORT FOR: //name// CC: Yanick Riley DATE OF SERVICE: 01/22/2019 PREOPERATIVE DIAGNOSIS: Coronary artery disease. POSTOPERATIVE DIAGNOSIS: Coronary artery disease. OPERATION: Coronary artery bypass x 4 including left internal mammary artery to left anterior descending artery, saphenous vein to ramus and marginal and saphenous vein to distal right coronary with endoscopic harvest, right greater saphenous vein and open harvest, left greater saphenous vein. SURGEON: Marcelo Arrington MD. VETERINARY MILK SPECIALIST: JOSE Saldivar. ANESTHESIA: General. INDICATIONS: The patient is a 58-year-old seen for Dr. Kirby. The patient has severe 3-vessel coronary artery disease and presents with unstable angina. FINDINGS AND TECHNIQUE: After general anesthesia was established, saphenous vein was harvested from the right lower extremity using an endoscopic approach. I was unhappy with the quality of the vein and therefore an open harvest of the left greater saphenous vein was done. This was a much better conduit. Exposure was obtained through median sternotomy. Left internal mammary artery was harvested from chest wall. Pericardial well was made. Cannulation sutures were placed. Heparin was given. Aorta was cannulated. Right atrium was cannulated. Cardioplegia needle was positioned in the aortic root. Retrograde cardioplegic catheter was placed in the coronary sinus. Cardiopulmonary bypass was established. The aorta was cross clamped. Antegrade and retrograde cardioplegia were given. Ice was poured into the pericardial well. The heart was stopped. During electromechanical arrest, the distal anastomoses were performed and end-to-side anastomosis was made between vein and the large marginal artery. Cold cardioplegia was given. This vessel was a 1.8 mm vessel. Cold cardioplegia was given. The same segment of vein was sewn in end-to-side fashion to the large ramus intermedius. This was a 1.7 mm vessel. Cold cardioplegia was given. Separate segment of vein was sewn in end-to-side [facility] [address] [place] [address] OPERATIVE REPORT Name: RAHEEM CHURCH Room #: 210-P [facility] IN [facility]#: [id number] Admission: 01/17/19 ������������������ Attend Phys: Kedar Riley MD Discharge: ������������������ Date of : 64 Report #: [id number] fashion to the distal right coronary. This was a 1.6 mm vessel were bypassed. Cold cardioplegia was given. Left internal mammary artery was sewn in end-to-side fashion to the left anterior descending artery. This was a 1.6 mm vessel. The anastomosis was checked with the temperature technique. Cold cardioplegia was given. Two proximal anastomoses were performed and these were complete, warm retrograde cardioplegia was given followed by warm continuous blood to the coronary sinus. When this infusion was complete, the crossclamp was removed, de-airing maneuvers were performed. The anastomoses were inspected and found to be satisfactory. As the patient warmed, nice cardiac activity resumed, chest tubes and pacing wires were placed, a marker was placed around the proximal anastomoses. When the patient was warm, she was weaned from cardiopulmonary bypass. Venous cannula was removed. Protamine was given, the aortic cannula was removed. Flows were measured in the bypass grafts. When hemostasis was satisfactory, chest was irrigated with antibiotic solution and closed in the usual fashion. The patient was taken to the Intensive Care Unit in good condition having tolerated the procedure well, although there was some coagulopathy related to blood loss from the vein and this was treated based on results or clotting studies. All counts reported as correct. ��������������������������������������������� <ELECTRONICALLY SIGNED> ���������������������������������������� By: Marcelo Arrington MD ��������������������������������������������� 01/25/19 2057 [id number] [id number] Marcelo Arrington MD /nt
[2019-01-26] VITALS (7 sets, daily range): BP systolic 86–115; BP diastolic 44–55
--- NOTE | 2019-01-26 01:57 | NUR ---
ASSESSMENTS CHARTED. MEDS GIVEN CHARTED. PO DAY 3/4 FROM CABG X4. ON 4 LITERS OXYGEN DURING SHIFT. PATIENT GOT UP TO BEDSIDE COMMODE WITH ASSIST X 1. DEVON DRAIN DRAINED AND RESET AFTER PATIENT GOT UP. PLAN OF CARE IS TO CONTINUE HEALING AND GETTING STRONGER, MOVING MORE. FALL PRECAUTIONS ARE IN PLACE. C/O PAIN AT STERNAL INCISION SITE. PATIENT ABLE TO GO BACK TO SLEEP QUICKLY.
[2019-01-26 05:23] LABS: HEMATOCRIT 21.4 % (37.0-47.0); HEMOGLOBIN 7.1 gm/dL (12.0-15.0); MCH 30.8 pg (26.0-34.0); MCHC 33.2 g/dL (28.0-37.0); MCV 92.7 fL (80.0-100.0); RBC 2.31 mil/uL (4.20-5.00); RDW 14.5 % (10.5-14.5); WBC 15.3 thou/uL (4.0-11.0)
[2019-01-26 05:43] LABS: CALCIUM 8.6 mg/dL (8.5-10.1); CREATININE 0.8 mg/dL (0.6-1.0); POTASSIUM 3.8 mmol/L (3.5-5.1)
[2019-01-26 08:50] LABS: OBSERVED RETIC COUNT 3.98 % (0.6-2.6)
[2019-01-26 08:58] LABS: % SATURATION 16 % (20-39); IRON 25 ug/dL (50-170); TIBC 158 ug/dL (250-450)
--- NOTE | 2019-01-26 16:47 | NUR ---
ASSUMMED PT CARE AT APPROXIMATELY 0700. PT A&O X4. ASSESSMENT CHARTED. FALL PRECAUTIONS IN PLACE. PT STATED SHE DOES NOT HAVE ACUTE CHEST PAIN. PT STATED SHE WAS NOT SOB. PT STATED SHE HAD PAIN 2/10 ON STERNAL. PT DENIED WANTING PAIN MEDICATIONS. PT HYPOTENSIVE IN MORNING, PT ASYMPTOMATIC. DR ALVARADO. PT RECEIVED NEW MEDICATION TO INCREASE BP. BP AND MAP INCREASED AFTER NEW MED GIVEN. PT HBG DECREASED. PT SYMPTOMATIC-WEAKNESS AND FATIGUE. NOTIFIED. PT RECEIVED 1 UNIT BLOOD. TRANSFUSION WENT WELL WITHOUT REACTIONS. VITAL SIGNS STABLE. BLOOD SUGARS STABLE. WILL CONTINUE TO MONITOR PT'S WEAKNESS, FATIGUE AND HGB. ENCOURAGING PT TO USE IS. PT UP TO CHAIR THROUGHOUT THE DAY. PT HAS DECREASED APPETITE AND THIRST. ENCOURAGING PT TO EAT AND DRINK. FAMILY MEMBERS VISITED. INFORMED FAMILY OF PT'S STATUS. PT'S FAMILY STATED UNDERSTANDING. PT RESTING IN BED.
--- NOTE | 2019-01-27 00:13 | NUR ---
PATIENT GOT ONE UNIT OF PRBC TODAY, STARTED ON MIDODRINE TO HELP SUPPORT BLOOD PRESSURE. FEELS BETTER AFTER INFUSION, MORE ENERGY. HAD BOWEL MOVEMENT DURING DAY. ACHS ON MODERATE SLIDING SCALE. UP WITH STANDBY ASSIST TO BSC. HAS SOME STRESS INCONTINENCE. DEVON DRAIN STILL PRESENT IN RIGHT LOWER LEG. STERNAL WOUND STILL TO -125 SUCTION WOUND VAC. PLAN IS TO CONTINUE STRENGTHENING WITH THERAPY.WEAN OFF OXYGEN.
[2019-01-27 04:32] VITALS: BP 97/49
[2019-01-27 07:26] LABS: HEMATOCRIT 21.8 % (37.0-47.0); HEMOGLOBIN 7.4 gm/dL (12.0-15.0); MCHC 33.9 g/dL (28.0-37.0); MCV 91.4 fL (80.0-100.0); RBC 2.39 mil/uL (4.20-5.00); RDW 14.7 % (10.5-14.5); WBC 13.6 thou/uL (4.0-11.0)
[2019-01-27 11:27] VITALS: BP 97/49
--- NOTE | 2019-01-27 14:15 | EKG ---
[address] [place] [address] ELECTROCARDIOGRAM REPORT Name: RAHEEM CHURCH Room #: 210-P ADM IN M.R.#: [id number] ������������������ Admission: 01/17/19 ������������������ Attend Phys: Kedar Riley MD Discharge: ������������������ Date of : 64 Report #: [id number] ����������������������������������������������������������������� [id number] THIS REPORT FOR: //name// [facility] Test Date: 2019-01-26 Test Time: 07:03:34 Pat Name: RAHEEM CHURCH Department: Room: 210 P Gender: F Psychiatric Clinical Nurse Specialist: juan : 1960 Requested By: Alberto Silva Order Number: [id number] MD: Pranay Mcdonald Measurements Intervals [place] Rate: 79 P: 60 MT: 175 QRS: 49 QRSD: 97 T: -88 QT: 471 QTc: 541 Interpretive Statements Sinus rhythm Low voltage, precordial leads Nonspecific T abnormalities, diffuse leads Prolonged QT interval Compared to ECG 01/24/2019 16:39:34 Nonspecific change in the ST and T-wave segments Prolonged QT interval now present Electronically Signed On 01-27-2019 14:15:26 CDT by Pranay Mcdonald [email or web address] ��������������������������������������������� <ELECTRONICALLY SIGNED> ���������������������������������������� By: Pranay Mcdonald MD, [facility] ��������������������������������������������� 01/27/19 1415 0703 [id number] Pranay Mcdonald MD, [facility] /EPI
[2019-01-27 16:13] VITALS: BP 106/50
--- NOTE | 2019-01-27 17:54 | NUR ---
ASSUMED CARE OF PT AT SHIFT CHANGE. ASSESSMENTS CHARTED. MEDS GIVEN PER JUL. VSS EXCEPT FOR LOW BP, TREATING WITH MIDODRINE. WORKED WITH PHYS THERAPY. SBA WITH WALKER. PAIN MANAGED WITH PO MEDS. SOILED DRESSINGS ON LEGS CHANGED. DEVON DRAIN DRESSING CHANGED. WILL CONTINUE TO MONITOR AND FOLLOW POC.
[2019-01-27 20:00] VITALS: BP 98/52
--- NOTE | 2019-01-27 22:59 | NUR ---
PATIENT FOUND IN BED WITH LIGHTS OUT AND SHADES DRAWN SLEEPING THE DAY AWAY. ASSESSMENTS CHARTED, MEDS CHARTED. PATIENT WALKED 1/2 OF THE UNIT, WENT TO THE [facility] TO URINATE. SAT IN A STRAIGHT BACK CHAIR WHILE HER HAIR WAS WASHED THEN GOT BACK INTO BED. STILL ON 4 LITERS OXYGEN. DEVON DRAIN PATIENT. WOUND VAC SEALED SYSTEM IN PLACE. PLAN IS TO CONTINUE STRENGTHENING THEN GO HOME WITH HOME HEALTH.
[2019-01-28] VITALS (8 sets, daily range): BP systolic 99–119; BP diastolic 51–71
[2019-01-28 04:56] LABS: HEMATOCRIT 21.5 % (37.0-47.0); HEMOGLOBIN 7.3 gm/dL (12.0-15.0); MCH 31.4 pg (26.0-34.0); MCHC 34.1 g/dL (28.0-37.0); RBC 2.33 mil/uL (4.20-5.00); RDW 14.3 % (10.5-14.5); WBC 14.3 thou/uL (4.0-11.0)
[2019-01-28 05:16] LABS: CALCIUM 8.6 mg/dL (8.5-10.1); CREATININE 0.8 mg/dL (0.6-1.0); POTASSIUM 3.9 mmol/L (3.5-5.1)
--- NOTE | 2019-01-28 09:56 | NUR ---
FAXED REFERRAL TO [facility] SPOKE WITH LUZMARIA THEY RECEIVED REFERRAL BUT THEY DO NOT ACCEPT PT'S INSURANCE. FAXED REFERRAL TO [facility] SPOKE WITH MARTHA IN INTAKE AND SHE DOES NOT ACCEPT INSURANCE.DCP TO FOLLOW.
--- NOTE | 2019-01-28 10:33 | NUR ---
[facility]ED REFERRAL TO [facility] SPOKE WITH HERB IN INTAKE SHE RECEIVED REFERRAL AND CAN ACCEPT AT [place].
--- NOTE | 2019-01-28 10:59 | NUR ---
Nutrition education completed-see RD education note. Continues at low nutrition risk as appetite is starting to improve, BG controlled
--- NOTE | 2019-01-28 18:13 | NUR ---
ASSESMENT CHARTED, ALERT AND ORIENTED. VSS AND SR ON THE MONITOR. MEDICATED FOR PAIN NEEDED. LT LEG DRESSING CHANGED BY LINA. PATIENT WALKED THE HALLWAYS X4 TODAY. PROGRSSEING TOWARDS GOAL AND WILL CONTINUE WITH POC.
--- NOTE | 2019-01-29 03:29 | NUR ---
ASSESSMENT DOCUMENTED.PT BEEN RESTING IN NO ACUTE DISTRESS.A/OX4.VSS.AMBULATED ON THE HALLWAYS X1 THIS SHIFT.RA W/O RESP DISTRESS.WOUND VAC IN PLACE.STENAL DRESSING INTACT.DEVON DRAIN TP LEFT INCISION INTACT.DRESSING TO INCISIONS TO MARA LEGS,SOME DRAINAGE SERASANGUOIS NOTED.PAIN MEDS GIVEN FR STERNAL INCISION PAIN WITH RELIEF.POC IS TO GO HOME TODAY WITH H/H.WILL CONT TO MONITOR PER POC.
[2019-01-29 07:24] VITALS: BP 99/55
[2019-01-29] MEDS ORDERED: HYDROCODON-ACE1 EAC7 PO (11:12)
[2019-01-29] MEDS ORDERED: LIPITOR40 MG PO (11:13)
[2019-01-29] MEDS ORDERED: METOPROLOL SUCC25 M1 PO (11:13)
[2019-01-29] MEDS ORDERED: ADULT LOW DOSE81 MG PO (11:13)
[2019-01-29] MEDS ORDERED: FERREX 150 PLU1 EAC1 PO (11:13)
[2019-01-29 11:40] VITALS: BP 99/57
--- NOTE | 2019-01-29 13:08 | NUR ---
ASSUMED AT SHIFT CHANGE, ALET AND ORIENTED X4. MEDICATED FOR PAIN NEEDED. PO METFORMIN STARTED TODAY. PATIENT ATE 25% OF DINNER AND REFUSED TO EAT LUNCH, INSULIN NOT GIVEN BG 111. SHE ANXIOUS ABOUT DISCHARGE HOME, AND RN CALLED LINA TO TALK TO PATIENT. VSS,AFEBRILE, AND SR ON THE MONITOR.
--- NOTE | 2019-01-29 14:13 | NUR ---
Plan dc home today with HH via [facility] care. Patient in agreement with plan.
[2019-01-29] MEDS ORDERED: GLUCOPHAGE XR750 MG PO (16:17)
[2019-01-29 16:44] VITALS: BP 101/56
--- NOTE | 2019-01-29 17:08 | NUR ---
Patient to dc home with HH. Faxed orders to [facility] care. Sp with [facility] to alert patient is being dc today. Patient reports her sister will be staying with her or she is going to stay at sisters home. Patients works automobile parts assembler. Patient to dc home with care. Obtained a walker for home. Patient did not qualify for home oxygen.
[2019-01-31 12:23] VITALS: BP 101/56
== END 2019-01-29 17:57 | disposition home health service (06) | DRG 234 ==
LOC: ER 09:39 → EROBS 12:38 → 2N 12:38 → 3W 12:38 → TBA 01-22 07:44 → ICU 01-22 18:16 → 2N 01-25 17:22
PROVIDERS: Emergency Medicine; Internal Medicine; Nurse Practitioner; Nurse Practitioner Adult Health; Physician Assistant; Student in an Organized Health Care Education/Training Program; Surgery Vascular Surgery; ADMIT Hospitalist
PROC: 4A023N7 Measurement of Cardiac Sampling and Pressure, Left Heart, Percutaneous Approach (ICD-10-PCS; 2019-01-17)
PROC: B2111ZZ Fluoroscopy of Multiple Coronary Arteries using Low Osmolar Contrast (ICD-10-PCS; 2019-01-17)
PROC: 02100Z9 Bypass Coronary Artery, One Artery from Left Internal Mammary, Open Approach (ICD-10-PCS; principal; 2019-01-22)
PROC: 30233R1 Transfusion of Nonautologous Platelets into Peripheral Vein, Percutaneous Approach (ICD-10-PCS; principal; 2019-01-22)
PROC: 021209W Bypass Coronary Artery, Three Arteries from Aorta with Autologous Venous Tissue, Open Approach (ICD-10-PCS; principal; 2019-01-22)
PROC: 30233K1 Transfusion of Nonautologous Frozen Plasma into Peripheral Vein, Percutaneous Approach (ICD-10-PCS; principal; 2019-01-22)
PROC: 30233N1 Transfusion of Nonautologous Red Blood Cells into Peripheral Vein, Percutaneous Approach (ICD-10-PCS; principal; 2019-01-22)
PROC: 5A1221Z Performance of Cardiac Output, Continuous (ICD-10-PCS; principal; 2019-01-22)
PROC: 06BQ0ZZ Excision of Left Saphenous Vein, Open Approach (ICD-10-PCS; principal; 2019-01-22)
PROC: 06BP4ZZ Excision of Right Saphenous Vein, Percutaneous Endoscopic Approach (ICD-10-PCS; principal; 2019-01-22)
PROC: 30233M1 Transfusion of Nonautologous Plasma Cryoprecipitate into Peripheral Vein, Percutaneous Approach (ICD-10-PCS; principal; 2019-01-22)
DX: I25.110 Atherosclerotic heart disease of native coronary artery with unstable angina pectoris (principal); K58.9 Irritable bowel syndrome, unspecified; F17.210 Nicotine dependence, cigarettes, uncomplicated; E78.5 Hyperlipidemia, unspecified; E11.65 Type 2 diabetes mellitus with hyperglycemia; F15.10 Other stimulant abuse, uncomplicated; I10 Essential (primary) hypertension; E66.01 Morbid (severe) obesity due to excess calories; D64.9 Anemia, unspecified; I95.9 Hypotension, unspecified; K21.9 Gastro-esophageal reflux disease without esophagitis; Z90.49 Acquired absence of other specified parts of digestive tract; Z90.710 Acquired absence of both cervix and uterus; Z79.82 Long term (current) use of aspirin; Z79.899 Other long term (current) drug therapy; Z88.4 Allergy status to anesthetic agent; Z71.51 Drug abuse counseling and surveillance of drug abuser; Z71.6 Tobacco abuse counseling; Z68.37 Body mass index [BMI] 37.0-37.9, adult
CPT/HCPCS: 10078; 10081; 10879; 47000; 47001; 47002; 47297; 48888; 50249; 50409; 50456; 50498; 50643; 50668; 50953; 51301; 52131; 52259; 52314; 53327; 53358; 54118; 55415; 56455; 56524; 56525; 56526; 56527; 56528; 56531; 56534; 56668; 56760; 56898; 57093; 57167; 62110; 62950; 65003; 65020; 65047; 65090; 65120; 65135; 83006

== ENCOUNTER 2019-03-06 18:36 | Emergency (ER) | payer OTHER ==
[~2019-03-06] VITALS: Ht 165.1 cm; Wt 91.6 kg
[~2019-03-06 18:36] MED LIST changes: +ADULT LOW DOSE81 MG PO; +FERREX 150 PLU1 EAC1 PO; +GLUCOPHAGE XR750 MG PO; +HYDROCODON-ACE1 EAC7 PO; +LIPITOR40 MG PO; +METOPROLOL SUCC25 M1 PO
[2019-03-06 19:33] LABS: ABSOLUTE NEUTROPHILS 4.6 thou/uL (1.4-8.2); BASOPHILS 0.9 % (0.0-2.0); EOSINOPHILS 4.5 % (0.0-3.0); HEMATOCRIT 35.2 % (37.0-47.0); HEMOGLOBIN 11.3 gm/dL (12.0-15.0); LYMPHOCYTES 21.1 % (24.0-44.0); MCH 28.2 pg (26.0-34.0); MCHC 32.2 g/dL (28.0-37.0); MCV 87.6 fL (80.0-100.0); MONOCYTES 9.6 % (1.0-8.0); PLATELET COUNT 281 thou/uL (150-400); POLYS 63.9 % (36.0-66.0); RBC 4.02 mil/uL (4.20-5.00); RDW 15.5 % (10.5-14.5); WBC 7.2 thou/uL (4.0-11.0)
[2019-03-06 19:41] LABS: ANION GAP 6 mmol/L (7-16); BUN 16 mg/dL (7-18); CALCIUM 9.1 mg/dL (8.5-10.1); CHLORIDE 107 mmol/L (98-107); CO2 28 mmol/L (21-32); CREATININE 0.7 mg/dL (0.6-1.0); GLUCOSE 137 mg/dL (74-106); POTASSIUM 3.9 mmol/L (3.5-5.1); SODIUM 141 mmol/L (136-145)
[2019-03-06 19:50] LABS: TROPONIN-I <0.06 ng/mL (<0.06)
[2019-03-06] MEDS ORDERED: SENNA-DOCUSATE1 EAC1 PO (22:51)
[2019-03-06] MEDS ORDERED: NORCO 5-325 TA1 EAC1 PO (22:51)
[2019-03-06 23:20] VITALS: BP 135/69
--- NOTE | 2019-03-07 07:50 | EKG ---
[place] [address] [employer] [place] [address] ELECTROCARDIOGRAM REPORT Name: RAHEEM CHURCH [id number] Admission: 03/06/19 Attend Phys: Discharge: 03/06/19 Date of : 64 Report #: [id number] THIS REPORT FOR: //name// [facility] ED Test Date: 2019-03-06 Test Time: 18:37:07 Pat Name: RAHEEM CHURCH Department: Room: Gender: F Clinical Reviewer: MONICA : 1960 Requested By: Arvin Tejada Order Number: [id number] MD: Glynn Cash Measurements Intervals [place] Rate: 77 P: 73 MD: 175 QRS: 86 QRSD: 90 T: 120 QT: 418 QTc: 474 Interpretive Statements Sinus rhythm Abnrm T, consider ischemia, anterolateral lds No previous ECG available for comparison Electronically Signed On 03-07-2019 7:50:16 CDT by Glynn Cash [email or web address] <ELECTRONICALLY SIGNED> By: Glynn Cash MD 03/07/19 0750 [id number] MD NASEEM Lutz
== END 2019-03-06 23:20 | disposition home or self-care (01) ==
LOC: ER 18:36
PROVIDERS: Emergency Medicine
DX: R07.89 Other chest pain (principal); I10 Essential (primary) hypertension; E11.9 Type 2 diabetes mellitus without complications; K58.9 Irritable bowel syndrome, unspecified; F17.210 Nicotine dependence, cigarettes, uncomplicated; Z90.49 Acquired absence of other specified parts of digestive tract; Z90.710 Acquired absence of both cervix and uterus; Z88.4 Allergy status to anesthetic agent